=== PATIENT | female | born 1980 | race Two or more races ===

== ENCOUNTER 2016-08-28 16:22 | Emergency (ER) | payer OTHER ==
[2016-08-28] MEDS ORDERED: SODIUM CHLORIDE 0.9% 1,000 ML IV ONE (18:01)
[2016-08-28] MEDS ORDERED: KETOROLAC 60 MG/2 ML VIAL IVP STA (18:01)
[2016-08-28] MEDS ORDERED: KETOROLAC 30 MG/ML VIAL ONE (18:23)
[2016-08-28] MEDS ORDERED: diphenhydrAMINE INJ 50 MG/ML VIAL IVP STA (18:53)
[2016-08-28] MEDS ORDERED: diphenhydrAMINE INJ 50 MG/ML VIAL ONE (18:54)
[2016-08-28] MEDS ORDERED: PROMETHAZINE INJ 25 MG in SODIUM CHLORIDE 0.9% 50 ML IV STA (19:02)
[2016-08-28] MEDS ORDERED: PROMETHAZINE 25 MG/1 ML VIAL ONE (19:07)
== END 2016-08-28 20:45 | disposition home or self-care (01) ==
DX: R51 Headache (principal); E11.9 Type 2 diabetes mellitus without complications; Z79.84 Long term (current) use of oral hypoglycemic drugs; R03.0 Elevated blood-pressure reading, without diagnosis of hypertension

== ENCOUNTER 2016-09-12 09:13 | Outpatient (CLI) | payer OTHER | END 2016-09-12 09:14 | disposition home or self-care (01) | DX: I10 Essential (primary) hypertension (principal) ==

== ENCOUNTER 2017-05-16 01:59 | Emergency (ER) | payer OTHER ==
--- NOTE | 2017-05-16 02:17 | ED Physician Documentation ---
PD HPI CHEST PAIN - Stated complaint Stated Complaint: CHEST PX - Chief complaint Chief Complaint: Cardiac - History obtained from History obtained from: Patient - History of Present Illness Timing - onset: How many hours ago (2) Timing - onset during: Rest Timing - details: Gradual onset Quality: Aching, Sharp Location: Left chest Radiation: Neck Worsened by: Palpation, Position Associated symptoms: No: Shortness of air, Diaphoresis, Nausea, Vomiting Similar symptoms before: No diagnosis Recently seen: Not recently seen - Additional information Additional information: Patient is a 36 year old female with a history of diabetes who is presenting to the emergency department for chest pain. patient states that she was diagnosed with pneumonia ealier in the week and is just finishing her antibiotics. patient states that she has some left sided neck pain, with radiation iinto her neck. patient states that it hurts to push on it and when she moves her arm. Review of Systems Constitutional: denies: Fever, Chills Eyes: denies: Loss of vision, Decreased vision Ears: denies: Ear pain, Drainage/discharge Nose: reports: Rhinorrhea / runny nose, Congestion Throat: denies: Dental pain / toothache, Oral lesions / sores, Sore throat Cardiac: reports: Chest pain / pressure. denies: Pedal edema, Calf pain Respiratory: reports: Cough. 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 : None HEENT: None Psych: Anxiety Musculoskeletal: Fatigue Derm: None - Past Surgical History /CASINO ACCOUNTANT: section, Dilation and currettage HEENT: Tonsil/Adenoidectomy - Present Medications Home Medications: Ambulatory Orders Medication Instructions Recorded Confirmed Ibuprofen 800 mg PO DAILY 08/28/16 03/20/17 metFORMIN [Glucophage] 500 mg PO QID 08/28/16 03/20/17 Lidocaine Patch 5% [Lidoderm Patch] 1 each TOP DAILY #10 patch 05/16/17 Pantoprazole [Protonix] 1 tab PO DAILY 05/16/17 05/16/17 diazePAM [Valium] 5 - 10 mg PO TID PRN #15 tablet 05/16/17 - Allergies Allergies/Adverse Reactions: Allergies Allergy/AdvReac Type Severity Reaction Status Date / Time iodine Allergy Rash Verified 05/16/17 02:10 Sulfa (Sulfonamide Allergy Rash Verified 05/16/17 02:10 Antibiotics) - Social History Does the pt smoke?: No Smoking Status: Never smoker Does the pt drink ETOH?: No Does the pt have substance abuse?: No PD ED PE NORMAL - Vitals Vital signs reviewed: Yes - General General: Alert and oriented X 3, No acute distress, Well developed/nourished - HEENT HEENT: Atraumatic, PERRL, Pharynx benign - Neck Neck: Supple, no meningeal sign, No JVD - Cardiac Cardiac: RRR, No murmur - Respiratory Respiratory: No respiratory distress, Clear bilaterally - Abdomen Abdomen: Soft, Non tender, Non distended - Derm Derm: Normal color, Warm and dry, No rash - Extremities Extremities: No deformity, No edema - Neuro Neuro: Alert and oriented X 3, No motor deficit, No sensory deficit - Psych Psych: Normal mood, Normal affect PD ED PE EXPANDED - Cardiac Cardiac: Regular Rate, Chest wall TTP (tenderness to palpation of left chest and axillary region but no on the right). No: S3, S4 Results - Vitals Vitals: Vital Signs - 24 hr 05/16/17 02:08 Temperature 36.5 C Heart Rate 73 Respiratory 18 Rate Blood Pressure 170/97 H O2 Saturation 99 Oxygen O2 Source Room air - EKG (time done) 0212 Rate: Rate (enter#) (72) Rhythm: NSR [place]: Normal Intervals: Normal [place] QRS: Normal Ischemia: Normal ST segments Compare to prior EKG: Unchanged from prior EKG - Labs Labs: Laboratory Tests 05/16/17 05/16/17 05/16/17 02:15 02:15 02:15 WBC 8.8 RBC 5.19 Hgb 11.9 L Hct 36.9 L MCV 71.0 L MCH 22.9 L MCHC 32.3 RDW 23.1 H Plt Count 341 MPV 7.8 L Neut # 3.3 Lymph # 4.7 H [place] # 0.5 Eos # 0.3 Baso # 0.1 Absolute Nucleated RBC 0.01 Nucleated RBC % 0.1 Manual Slide Review Indicated Platelet Estimate NORMAL (130-450,000) RBC Morph Micro Appear 1+ OVALOCYTES Sodium 135 Potassium 3.6 Chloride 100 L Carbon Dioxide 25 Anion Gap 10.0 BUN 10 Creatinine 0.5 Estimated GFR (MDRD) 140 Glucose 232 H Calcium 9.4 Total Bilirubin 0.7 AST 14 ALT 20 Alkaline Phosphatase 95 Troponin I < 0.04 Total Protein 7.6 Albumin 4.1 Globulin 3.5 Albumin/Globulin Ratio 1.2 Lipase 48 - Rads (name of study) chest x-ray Radiology: Final report received (normal) PD MEDICAL DECISION MAKING - ED course Complexity details: reviewed old records, reviewed results, re-evaluated patient , considered differential, d/w patient ED course: Patient was seen and examined at bedside. ekg was performed and was unchanged from previous. Patient's labs and chest x-ray were within normal limits. patient had a PERC score of zero and a HEART score of 1. Patient was treated with topical lidoderm. Patient was given ample time to ask questions. Patient required no further work up and was stable for discharge with outpatient follow up. Departure - Departure Disposition: 01 Home, Self Care Clinical Impression: Atypical chest pain Condition: Good Instructions: ED Chest Pain Atypical Unkn Cause Follow-Up: MAYA HENAO [Primary Care Provider] - Prescriptions: diazePAM [Valium] 5 - 10 mg PO TID PRN #15 tablet PRN Reason: Spasms Lidocaine Patch 5% [Lidoderm Patch] 1 each TOP DAILY #10 patch Comments: Your diagnostics today were within normal limits. there is no sign of any cardiac disease and the likelyhood that it is your heart or lungs is less than 2 percent. It is likely musculoskeletal in nature. You should still follow up with your pmd for re-evaluation early next week and you can schedule an echocardiogram and a stress test. You may return to the emergency department at any time for new, worsening or uncontrollable symptoms.
[2017-05-16 02:26] LABS: BASOPHILS # (AUTO) 0.1 10^3/uL (0.0-0.1); EOSINOPHILS # (AUTO) 0.3 10^3/uL (0.0-0.7); EOSINOPHILS % (AUTO) 3.1 %; HCT - HEMATOCRIT 36.9 % (37.0-47.0); HGB - HEMOGLOBIN 11.9 g/dL (12.0-16.0); LYMPHOCYTES # (AUTO) 4.7 10^3/uL (1.5-3.5); LYMPHOCYTES % (AUTO) 53.2 %; MEAN CORPUSCULAR HEMOGLOBIN 22.9 pg (27.0-31.0); MEAN CORPUSCULAR HGB CONC 32.3 g/dL (32.0-36.0); MEAN PLATELET VOLUME 7.8 fL (7.9-10.8); MONOCYTES # (AUTO) 0.5 10^3/uL (0.0-1.0); MONOCYTES % (AUTO) 5.7 %; NEUTROPHILS # (AUTO) 3.3 10^3/uL (1.5-6.6); NUCLEATED RED BLOOD CELLS AUTO 0.1 /100WBC; RED BLOOD COUNT 5.19 10^6/uL (4.20-5.40); RED CELL DISTRIBUTION WIDTH 23.1 % (12.0-15.0); UNCORRECTED WHITE BLOOD COUNT 8.8 x10^3/uL; WHITE BLOOD COUNT 8.8 x10^3/uL (4.8-10.8)
[2017-05-16 02:33] LABS: ALBUMIN/GLOBULIN RATIO 1.2 (1.0-2.2); BILIRUBIN,TOTAL 0.7 mg/dL (0.2-1.0); CALCIUM 9.4 mg/dL (8.5-10.3); CREATININE 0.5 mg/dL (0.4-1.0); POTASSIUM 3.6 mmol/L (3.5-5.0); TOTAL PROTEIN 7.6 g/dL (6.7-8.2)
--- NOTE | 2017-05-16 02:41 | XRAY Preliminary Report ---
Exam: XR Chest 2 View PA/LAT IMPRESSION: Normal 2-view chest radiography. [facility] SITE ID: [id number]
--- NOTE | 2017-05-16 02:43 | XRAY Report ---
EXAM: CHEST RADIOGRAPHY EXAM DATE: 05/16/2017 02:34 AM. CLINICAL HISTORY: Chest pain hx of pneumonia. COMPARISON: None. TECHNIQUE: 2 views. FINDINGS: Lungs/Pleura: No focal opacities evident. No pleural effusion. No pneumothorax. Normal volumes. Mediastinum: Heart and mediastinal contours are unremarkable. Other: None. IMPRESSION: Normal 2-view chest radiography. [facility] Referring Provider Line: [phone] SITE ID: [id number]
[2017-05-16 02:48] LABS: PLATELET ESTIMATE, MANUAL NORMAL (130-450,000) (NORMAL)
[2017-05-16] MEDS ORDERED: LIDOCAINE PATCH 5% TOP STA (03:17)
[2017-05-16] MEDS ORDERED: LIDOCAINE PATCH 5% TOP ONE (03:30)
[2017-05-16 03:33] VITALS: BP 163/89
== END 2017-05-16 03:34 | disposition home or self-care (01) ==
LOC: ED 01:59
DX: R07.89 Other chest pain (principal); E11.9 Type 2 diabetes mellitus without complications; Z79.84 Long term (current) use of oral hypoglycemic drugs; I10 Essential (primary) hypertension; E78.00 Pure hypercholesterolemia, unspecified; K21.9 Gastro-esophageal reflux disease without esophagitis
CPT/HCPCS: 36415; 71020; 80053; 83690; 84484; 85025; 93005; 99283; 99284; A9270

== ENCOUNTER 2017-08-22 09:53 | Outpatient (CLI) | payer OTHER ==
--- NOTE | 2017-08-22 13:19 | MRI Report ---
EXAM: MRI LUMBAR SPINE WITHOUT CONTRAST EXAM DATE: 08/22/2017 11:41 AM. CLINICAL HISTORY: 36-year-old woman with right-sided buttock, lower leg, and calf pain. COMPARISON: None. TECHNIQUE: Multiplanar, multisequence T1-weighted and fluid-sensitive sequences of the lumbar spine f rom T12 to S1 without contrast. Other: None. FINDINGS: Spinal Cord: The conus terminates at L1. Cauda equinus nerve roots are normal in appearance. Alignment: There is trace retrolisthesis of L4 on L5. There is mild convex left scoliosis centered at L4-L5. Bone Marrow: Five [id number] lumbar vertebral bodies are present. No gross fractures or bone les ions. No bone marrow edema. Disk Levels/Facets: T12-L1: Unremarkable. L1-L2: Unremarkable. L2-L3: Unremarkable. L3-L4: Unremarkable. L4-L5: There is distal desiccation without significant height loss. Small broad-based disk bulge is p resent without significant narrowing of the central canal. There is mild facet hypertrophy without si gnificant narrowing of the neural foramina bilaterally. L5-S1: There is disk desiccation and moderate height loss. Right paracentral disk protrusion effaces the right lateral recess and appears to compress the passing right S1 nerve roots. No significant gurinder rowing of the central canal overall. Disk in the sub-radicular space results in mild to moderate narr owing of the left neural foramen without significant narrowing on the right. Musculature: Normal. No edema or fatty atrophy. Other: The partially visualized retroperitoneum is unremarkable. IMPRESSION: 1. L5-S1: Right paracentral disk protrusion effaces the right lateral recess and appears to compress the passing right S1 nerve roots. Mild to moderate narrowing of the left neural foramen. 2. L4-L5: Degenerative disk changes without significant narrowing of the central canal or neural fora bryan. Comment: The following findings are so common in adults without low back pain that while we report th eir presence, they must be interpreted with caution and in the context of the clinical situation. (Re chris Pelletier et al, Spine 2001) Prevalence of findings in patients without low back pain: Disk degeneration (any evidence): 92% Disk desiccation/T2 signal loss: 83% Disk height loss: 56% Disk bulge: 64% Disk protrusion: 32% Annular tear/high intensity zone: 38% [facility] Referring Provider Line: [phone] SITE ID: [id number]
== END 2017-08-22 09:54 | disposition home or self-care (01) ==
LOC: DI 09:53
PROVIDERS: ATTEND Family Medicine
DX: M51.27 Other intervertebral disc displacement, lumbosacral region (principal); M51.36 Other intervertebral disc degeneration, lumbar region; M47.896 Other spondylosis, lumbar region
CPT/HCPCS: 72148

== ENCOUNTER 2018-03-24 14:39 | Outpatient (CLI) | payer OTHER ==
--- NOTE | 2018-03-24 16:59 | Ultrasound Report ---
Procedure Date: 03/24/2018 Accession Number: [id number] / [id number] Procedure: US - Pelvic w/Transvaginal CPT Code: FULL RESULT: EXAM: PELVIC ULTRASOUND. EXAM DATE: 03/24/2018 04:09 PM. CLINICAL HISTORY: Pelvic perineal PX, irregular menstruation. COMPARISON: None. TECHNIQUE: Realtime transabdominal pelvic scan performed to identify the uterus and adnexa and as an overview of other pelvic structures, followed by transvaginal scan to provide greater detail of the uterus and adnexa, with static image documentation. FINDINGS: Uterus: 10.9 x 4.8 x 6.0 cm, volume 164 cc. Anteverted position. Echotexture is heterogeneous which is nonspecific but can be seen with adenomyosis. Masses: None. Endometrium: 8 mm. Normal. Cervix: 1.2 x 1.5 x 1.6 cm cyst is identified, likely nabothian. Right Ovary: 4.6 x 2.4 x 2.5 cm, volume 14.4 cc. Normal echotexture and blood flow. Left Ovary: 3.6 x 1.9 x 2.4 cm, volume 8.5 cc. Normal echotexture and blood flow. Free Fluid: A small amount of free fluid is felt to be within physiologic limits. Other: None. IMPRESSION: Heterogeneous echotexture of the uterus is nonspecific but can be seen with adenomyosis. [facility]
== END 2018-03-24 14:40 | disposition home or self-care (01) ==
LOC: DI 14:39
PROVIDERS: ATTEND Family Medicine
DX: N92.5 Other specified irregular menstruation (principal); R10.2 Pelvic and perineal pain
CPT/HCPCS: 76830; 76856

== ENCOUNTER 2018-04-30 22:28 | Emergency (ER) | payer OTHER ==
[2018-04-30 22:49] LABS: BASOPHILS # (AUTO) 0.1 10^3/uL (0.0-0.1); BASOPHILS % (AUTO) 1.1 %; EOSINOPHILS # (AUTO) 0.4 10^3/uL (0.0-0.7); HGB - HEMOGLOBIN 13.3 g/dL (12.0-16.0); LYMPHOCYTES # (AUTO) 4.6 10^3/uL (1.5-3.5); LYMPHOCYTES % (AUTO) 42.9 %; MEAN CORPUSCULAR HEMOGLOBIN 26.1 pg (27.0-31.0); MEAN CORPUSCULAR HGB CONC 32.9 g/dL (32.0-36.0); MEAN CORPUSCULAR VOLUME 79.3 fL (81.0-99.0); MEAN PLATELET VOLUME 8.1 fL (7.9-10.8); MONOCYTES # (AUTO) 0.7 10^3/uL (0.0-1.0); MONOCYTES % (AUTO) 6.6 %; NEUTROPHILS # (AUTO) 4.8 10^3/uL (1.5-6.6); NEUTROPHILS % (AUTO) 45.4 %; PLT - PLATELET COUNT 307 10^3/uL (130-450); RED CELL DISTRIBUTION WIDTH 13.8 % (12.0-15.0); WHITE BLOOD COUNT 10.6 x10^3/uL (4.8-10.8)
[2018-04-30 23:02] LABS: ALBUMIN 4.1 g/dL (3.2-5.5); ALBUMIN/GLOBULIN RATIO 1.2 (1.0-2.2); BILIRUBIN,TOTAL 0.5 mg/dL (0.2-1.0); CREATININE 0.5 mg/dL (0.4-1.0); TOTAL PROTEIN 7.4 g/dL (6.7-8.2)
[2018-04-30 23:18] LABS: BILIRUBIN,URINE NEGATIVE (NEGATIVE); GLUCOSE, URINE (UA) >=1000 mg/dL (NEGATIVE); KETONES,URINE (UA) NEGATIVE (NEGATIVE); LEUKOCYTE ESTERASE, URINE NEGATIVE (NEGATIVE); NITRITE,URINE NEGATIVE (NEGATIVE); OCCULT BLOOD,URINE NEGATIVE (NEGATIVE); PH,URINE 7.5 PH (5.0-7.5); PROTEIN,URINE NEGATIVE (NEGATIVE); UROBILINOGEN,URINE 0.2 (NORMAL) E.U./dL (NORMAL)
[2018-04-30 23:20] LABS: CLARITY,URINE CLEAR (CLEAR); HCG UR QUAL NEGATIVE
--- NOTE | 2018-05-01 00:27 | ED Physician Documentation ---
PD HPI CHEST PAIN - Stated complaint Stated Complaint: CP - Chief complaint Chief Complaint: Cardiac - History obtained from History obtained from: Patient - History of Present Illness Timing - onset: Enter time (17:00), Today Timing - details: Abrupt onset Pain level now: 0 Quality: Pressure, Sharp, Pain Location: Substernal Radiation: Other (right>left) Improved by: Nothing Worsened by: Other (no exacerbating factors) Recently seen: Not recently seen - Additional information Additional information: c/o chest pain sudden onset 5 PM, right anterior chest to left, onset while leaning over table at home. initially sharp, but after one hour, became dull pressure. Review of Systems Constitutional: reports: Reviewed and negative Cardiac: reports: Chest pain / pressure. denies: Palpitations, Pedal edema, Calf pain Respiratory: reports: Reviewed and negative GI: reports: Nausea. 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 : None HEENT: None Psych: Anxiety Musculoskeletal: Fatigue Derm: None - Past Surgical History /TRACK GRINDER: section, Dilation and currettage HEENT: Tonsil/Adenoidectomy - Present Medications Home Medications: Ambulatory Orders Medication Instructions Recorded Confirmed Ibuprofen 800 mg PO DAILY 08/28/16 03/20/17 metFORMIN [Glucophage] 500 mg PO QID 08/28/16 03/20/17 Lidocaine Patch 5% [Lidoderm Patch] 1 each TOP DAILY #10 patch 05/16/17 Pantoprazole [Protonix] 1 tab PO DAILY 05/16/17 05/16/17 diazePAM [Valium] 5 - 10 mg PO TID PRN #15 tablet 05/16/17 - Allergies Allergies/Adverse Reactions: Allergies Allergy/AdvReac Type Severity Reaction Status Date / Time iodine Allergy Rash Verified 05/16/17 02:10 Sulfa (Sulfonamide Allergy Rash Verified 05/16/17 02:10 Antibiotics) - Social History Does the pt smoke?: No Smoking Status: Never smoker Does the pt drink ETOH?: Yes ETOH Use: Wine Does the pt have substance abuse?: No - Immunizations Immunizations are current?: Yes PD ED PE NORMAL - Vitals Vital signs reviewed: Yes - General General: Alert and oriented X 3, No acute distress, Well developed/nourished - Neck Neck: Supple, no meningeal sign - Cardiac Cardiac: RRR, No murmur, No gallop, No rub - Respiratory Respiratory: No respiratory distress, Clear bilaterally - Abdomen Abdomen: Normal bowel sounds, Soft, Non tender, Non distended - Extremities Extremities: No edema Results - Vitals Vitals: Oxygen O2 Source Room air - EKG (time done) No standard instances Rate: Rate (enter#) (76) Rhythm: NSR [place]: Normal Intervals: Normal [place] QRS: Normal Ischemia: Normal ST segments - Labs Labs: Laboratory Tests 04/30/18 04/30/18 04/30/18 22:40 22:40 22:40 WBC 10.6 RBC 5.10 Hgb 13.3 Hct 40.5 MCV 79.3 L MCH 26.1 L MCHC 32.9 RDW 13.8 Plt Count 307 MPV 8.1 Neut # (Auto) 4.8 Lymph # (Auto) 4.6 H [place] # (Auto) 0.7 Eos # (Auto) 0.4 Baso # (Auto) 0.1 Absolute Nucleated RBC 0.00 Nucleated RBC % 0.0 Sodium 134 L Potassium 3.8 Chloride 101 Carbon Dioxide 25 Anion Gap 8.0 BUN 11 Creatinine 0.5 Estimated GFR (MDRD) 139 Glucose 219 H Calcium 9.0 Total Bilirubin 0.5 AST 16 ALT 16 Alkaline Phosphatase 87 Troponin I < 0.04 Total Protein 7.4 Albumin 4.1 Globulin 3.3 Albumin/Globulin Ratio 1.2 Lipase 51 Urine Color Urine Clarity Urine pH Ur Specific [place] Urine Protein Urine Glucose (UA) Urine Ketones Urine Occult Blood Urine Nitrite Urine Bilirubin Urine Urobilinogen Ur Leukocyte Esterase Ur Microscopic Review Urine Culture Comments Urine HCG, Qual 04/30/18 22:40 WBC RBC Hgb Hct MCV MCH MCHC RDW Plt Count MPV Neut # (Auto) Lymph # (Auto) [place] # (Auto) Eos # (Auto) Baso # (Auto) Absolute Nucleated RBC Nucleated RBC % Sodium Potassium Chloride Carbon Dioxide Anion Gap BUN Creatinine Estimated GFR (MDRD) Glucose Calcium Total Bilirubin AST ALT Alkaline Phosphatase Troponin I Total Protein Albumin Globulin Albumin/Globulin Ratio Lipase Urine Color YELLOW Urine Clarity CLEAR Urine pH 7.5 Ur Specific [place] 1.015 Urine Protein NEGATIVE Urine Glucose (UA) >=1000 H Urine Ketones NEGATIVE Urine Occult Blood NEGATIVE Urine Nitrite NEGATIVE Urine Bilirubin NEGATIVE Urine Urobilinogen 0.2 (NORMAL) Ur Leukocyte Esterase NEGATIVE Ur Microscopic Review NOT INDICATED Urine Culture Comments NOT INDICATED Urine HCG, Qual NEGATIVE - Rads (name of study) chest xray Radiology: Prelim report reviewed, See rad report PD MEDICAL DECISION MAKING - ED course Complexity details: reviewed results, re-evaluated patient, considered differential, d/w patient - Sepsis Event Vital Signs: Oxygen O2 Source Room air Departure - Departure Disposition: 01 Home, Self Care Clinical Impression: Chest pain Condition: Good Instructions: ED Chest Pain Atypical Unkn Cause Follow-Up: SIMBA SWANSON DO [Primary Care Provider] - Comments: Follow up with your primary care provider; they might order other tests such as an ultrasound of your gallbladder. Discharge Date/Time: 05/01/18 02:32
[2018-05-01 01:10] VITALS: BP 144/106
--- NOTE | 2018-05-01 01:26 | XRAY Report ---
Reason: chest pain Procedure Date: 05/01/2018 Accession Number: [id number] / [id number] Procedure: XR - Chest 2 View X-Ray CPT Code: 55191 FULL RESULT: EXAM: CHEST RADIOGRAPHY EXAM DATE: 05/01/2018 01:00 AM. CLINICAL HISTORY: Sharp mid chest pain across the chest, chest pressure. Symptoms since 5 PM. COMPARISON: CHEST 2 VIEW PA/LAT 05/16/2017 2:16 AM. TECHNIQUE: 2 views. FINDINGS: Lungs/Pleura: No focal opacities evident. No pleural effusion. No pneumothorax. Normal volumes. Mediastinum: Heart and mediastinal contours are unremarkable. Other: None. IMPRESSION: Stable normal appearance of the chest. [facility]
== END 2018-05-01 02:32 | disposition home or self-care (01) ==
LOC: ED 22:28
DX: R07.9 Chest pain, unspecified (principal); I10 Essential (primary) hypertension; E11.9 Type 2 diabetes mellitus without complications; Z79.84 Long term (current) use of oral hypoglycemic drugs
CPT/HCPCS: 36415; 71046; 80053; 81001; 81003; 81025; 83690; 84484; 85025; 87086; 93005; 93010; 99282; 99283

== ENCOUNTER 2018-05-05 14:23 | Outpatient (CLI) | payer OTHER | END 2018-05-05 14:24 | disposition home or self-care (01) | LOC: SC 14:23 | PROVIDERS: ATTEND Internal Medicine Pulmonary Disease | DX: G47.10 Hypersomnia, unspecified (principal); R06.83 Snoring; G47.8 Other sleep disorders; E66.9 Obesity, unspecified; Z68.33 Body mass index [BMI] 33.0-33.9, adult; G47.21 Circadian rhythm sleep disorder, delayed sleep phase type; G47.00 Insomnia, unspecified | CPT/HCPCS: 99203; 99212 ==

== ENCOUNTER 2018-06-12 10:54 | Emergency (ER) | payer OTHER ==
--- NOTE | 2018-06-12 12:16 | ED Physician Documentation ---
PD HPI SKIN - Stated complaint Stated Complaint: RT EYE SWELLING/FOAM AT MOUTH/HEAD PX - Chief complaint Chief Complaint: Heent - History obtained from History obtained from: Patient - History of Present Illness Timing - onset: How many days ago (few days of pain right forehead/face with some rash, Dx as shingles and PMD Rx valacyclovir and Elavil. She is having pain extend to around the eyelids and cheek today, and called PMD office and told to come to ER. Denies pain in eye itself, nor "lindsey" feeling nor blurred vision.) Timing - duration: Days Timing - details: Gradual onset Location: Face (right forehead and cheek, now pain to eyelid area) Quality / character: Painful, Burning Associated symptoms: Other. 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 : None HEENT: None Psych: Anxiety Musculoskeletal: Fatigue Derm: None - Past Surgical History /HEAD TENNIS PROFESSIONAL: section, Dilation and currettage HEENT: Tonsil/Adenoidectomy - Present Medications Home Medications: Ambulatory Orders Medication Instructions Recorded Confirmed Ibuprofen 800 mg PO DAILY 08/28/16 03/20/17 metFORMIN [Glucophage] 1,000 mg PO QID 08/28/16 03/20/17 Amitriptyline [Elavil] 06/12/18 Aspirin 06/12/18 Cyclobenzaprine [Flexeril] 06/12/18 Docusate Calcium 06/12/18 Insulin Aspart [Novolog Flexpen] 06/12/18 Loratadine 06/12/18 Losartan [Cozaar] 06/12/18 Naproxen [Naprosyn] 500 mg PO BID #20 tablet 06/12/18 Omeprazole 06/12/18 Oxycodone HCl/Acetaminophen 06/12/18 [Oxycodone-Acetaminophen 10-325] Simvastatin 06/12/18 Valacyclovir HCl [Valacyclovir] 06/12/18 - Allergies Allergies/Adverse Reactions: Allergies Allergy/AdvReac Type Severity Reaction Status Date / Time iodine Allergy Rash Verified 06/12/18 11:01 Sulfa (Sulfonamide Allergy Rash Verified 06/12/18 11:01 Antibiotics) - Social History Does the pt smoke?: No Smoking Status: Never smoker Does the pt drink ETOH?: Yes Does the pt have substance abuse?: No - Immunizations Immunizations are current?: Yes PD ED PE NORMAL - Vitals Vital signs reviewed: Yes - General General: Alert and oriented X 3, No acute distress, Well developed/nourished - HEENT HEENT: PERRL, EOMI, Pharynx benign, Other (flourescein dye without uptake. Anterior chamber appears normal. ) - Neck Neck: Supple, no meningeal sign, No adenopathy - Cardiac Cardiac: RRR, No murmur - Respiratory Respiratory: Clear bilaterally - Derm Derm: Normal color, Warm and dry, Other (right lateral forehead and restorationist area blistered red patch of rash c/w shingles. No rash as yet on cheek nor eyelid but skin sensitive. No sensitivity at tip of nose. ) - Neuro Neuro: Alert and oriented X 3, No motor deficit, Normal speech Results - Vitals Vitals: Oxygen O2 Source Room air PD MEDICAL DECISION MAKING - ED course Complexity details: considered differential (some skin pain and sensitive in facial skin. No symptoms of the orbit/eye itself. ), d/w patient Departure - Departure Disposition: 01 Home, Self Care Clinical Impression: Shingles outbreak Qualifiers: Herpes zoster complications: without complications Qualified Code(s): B02.9 - Zoster without complications Condition: Stable Record reviewed to determine appropriate education?: Yes Instructions: ED Shingles Follow-Up: SIMBA SWANSON DO [Primary Care Provider] - Prescriptions: Naproxen [Naprosyn] 500 mg PO BID #20 tablet Comments: It does not sound to look like the shingles is involving the eye itself. The eyelids are worse the skin around and would fit with the expected distribution of your shingles rash. One will get some abnormal sensation and swelling from the shingles even if there is not a rash in that area at the time. I would continue current medications and add some anti-inflammatories such as naproxen twice daily. Discharge Date/Time: 06/12/18 12:50
[2018-06-12] MEDS ORDERED: NAPROXEN 250 MG TABLET PO STA (12:40)
[2018-06-12 12:50] VITALS: BP 130/92
== END 2018-06-12 12:50 | disposition home or self-care (01) ==
LOC: ED 10:54
DX: B02.9 Zoster without complications (principal); I10 Essential (primary) hypertension; E11.9 Type 2 diabetes mellitus without complications; Z79.84 Long term (current) use of oral hypoglycemic drugs
CPT/HCPCS: 99283; A9270

== ENCOUNTER 2018-09-01 16:55 | Emergency (ER) | payer OTHER ==
[2018-09-01] MEDS ORDERED: SODIUM CHLORIDE 0.9% 1,000 ML IV ONE (18:35)
--- NOTE | 2018-09-01 18:37 | ED Physician Documentation ---
History of Present Illness - Stated complaint Stated Complaint: VOMITING - Chief complaint Chief Complaint: General - History obtained from History obtained from: Patient - History of Present Illness Timing: Yesterday (This is a 37-year-old type II diabetic on insulin with the possibility of became sick yesterday with postnasal drip and increase in her reflux systems as well as a productive cough and one episode of vomiting although she is not nauseous now. She has had chills and myalgias but no measured fevers. 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 She has not had an abnormal chest x-ray but has had pneumonia in the past. Her blood sugars went up in the 400s today which was unexpected.) Review of Systems Constitutional: reports: Chills, Fatigue. denies: Fever Nose: reports: Rhinorrhea / runny nose Throat: reports: Sore throat Respiratory: reports: Dyspnea, Cough GI: reports: Nausea, Vomiting. denies: Abdominal Pain PD PAST MEDICAL HISTORY - Past Medical History Cardiovascular: Hypertension, High cholesterol Respiratory: None Endocrine/Autoimmune: Type 2 diabetes GI: GERD, Chronic constipation DATA COLLECTION INTERVIEWER: Ovarian cysts : None HEENT: None Psych: Anxiety Musculoskeletal: Fatigue Derm: None - Past Surgical History /DATA COLLECTION INTERVIEWER: section, Dilation and currettage HEENT: Tonsil/Adenoidectomy - Present Medications Home Medications: Ambulatory Orders Medication Instructions Recorded Confirmed Ibuprofen 800 mg PO DAILY 08/28/16 03/20/17 metFORMIN [Glucophage] 1,000 mg PO BID 08/28/16 03/20/17 Amitriptyline [Elavil] 06/12/18 Aspirin 06/12/18 Docusate Calcium 06/12/18 Insulin Aspart [Novolog Flexpen] 06/12/18 Losartan [Cozaar] 06/12/18 Omeprazole 06/12/18 Simvastatin 06/12/18 Benzonatate [Tessalon Perle] 100 - 200 mg PO TID PRN #30 capsule 09/01/18 - Allergies Allergies/Adverse Reactions: Allergies Allergy/AdvReac Type Severity Reaction Status Date / Time iodine Allergy Rash Verified 09/01/18 17:07 Sulfa (Sulfonamide Allergy Rash Verified 09/01/18 17:07 Antibiotics) - Social History Does the pt smoke?: No Smoking Status: Never smoker Does the pt drink ETOH?: Yes Does the pt have substance abuse?: No - Immunizations Immunizations are current?: Yes PD ED PE NORMAL - Vitals Vital signs reviewed: Yes - General General: Alert and oriented X 3, No acute distress - HEENT HEENT: PERRL, EOMI, Ears normal, Moist mucous membranes, Pharynx benign - Neck Neck: Supple, no meningeal sign, No bony TTP - Cardiac Cardiac: RRR, No murmur - Respiratory Respiratory: No respiratory distress, Clear bilaterally - Abdomen Abdomen: Normal bowel sounds, Soft, Non tender - Back Back: No CVA TTP, No spinal TTP - Derm Derm: No rash - Neuro Neuro: Alert and oriented X 3, Normal speech Results - Vitals Vitals: Vital Signs - 24 hr 09/01/18 09/01/18 09/01/18 17:02 17:07 18:34 Temperature 36.3 C L 36.7 C Heart Rate 118 H 111 H Respiratory 20 15 Rate Blood Pressure 141/98 H 139/94 H O2 Saturation 97 97 Oxygen O2 Source Room air - Labs Labs: Laboratory Tests 09/01/18 09/01/18 09/01/18 17:09 17:09 18:25 WBC RBC Hgb Hct MCV MCH MCHC RDW Plt Count MPV Neut # (Auto) Lymph # (Auto) [place] # (Auto) Eos # (Auto) Baso # (Auto) Absolute Nucleated RBC Nucleated RBC % Sodium Potassium Chloride Carbon Dioxide Anion Gap BUN Creatinine Estimated GFR (MDRD) Glucose Calcium Total Bilirubin AST ALT Alkaline Phosphatase Total Protein Albumin Globulin Albumin/Globulin Ratio Lipase Urine Color YELLOW Urine Clarity CLEAR Urine pH 5.5 Ur Specific [place] 1.020 Urine Protein NEGATIVE Urine Glucose (UA) >=1000 H Urine Ketones 15 H Urine Occult Blood NEGATIVE Urine Nitrite NEGATIVE Urine Bilirubin NEGATIVE Urine Urobilinogen 0.2 (NORMAL) Ur Leukocyte Esterase NEGATIVE Ur Microscopic Review NOT INDICATED Urine Culture Comments NOT INDICATED Urine HCG, Qual Influenza A (Rapid) Negative Influenza B (Rapid) Negative Group A Strep Rapid Negative 09/01/18 09/01/18 09/01/18 18:25 18:45 18:45 WBC 9.1 RBC 5.27 Hgb 13.8 Hct 42.8 MCV 81.2 MCH 26.3 L MCHC 32.4 RDW 13.6 Plt Count 323 MPV 8.2 Neut # (Auto) 6.1 Lymph # (Auto) 2.1 [place] # (Auto) 0.7 Eos # (Auto) 0.1 Baso # (Auto) 0.1 Absolute Nucleated RBC 0.00 Nucleated RBC % 0.0 Sodium 134 L Potassium 3.8 Chloride 100 L Carbon Dioxide 25 Anion Gap 9.0 BUN 9 Creatinine 0.7 Estimated GFR (MDRD) 94 Glucose 313 H Calcium 9.7 Total Bilirubin 0.8 AST 13 ALT 17 Alkaline Phosphatase 116 Total Protein 8.1 Albumin 4.1 Globulin 4.0 Albumin/Globulin Ratio 1.0 Lipase 42 Urine Color Urine Clarity Urine pH Ur Specific [place] 1.020 Urine Protein Urine Glucose (UA) Urine Ketones Urine Occult Blood Urine Nitrite Urine Bilirubin Urine Urobilinogen Ur Leukocyte Esterase Ur Microscopic Review Urine Culture Comments Urine HCG, Qual NEGATIVE Influenza A (Rapid) Influenza B (Rapid) Group A Strep Rapid - Rads (name of study) 2v chest Radiology: EMP read contemporaneously (NAD) PD MEDICAL DECISION MAKING - ED course ED course: This is a 37-year-old woman with type 2 diabetes on insulin who presents with uncontrolled blood sugars in the setting of what sounds like a viral URI. Her workup was otherwise unremarkable including to clear chest x-ray no evidence of DKA on blood work. Departure - Departure Disposition: Home, Self Care Clinical Impression: Viral URI Uncontrolled type 2 diabetes mellitus Qualifiers: Glycemic state: with hyperglycemia Qualified Code(s): E11.65 - Type 2 diabetes mellitus with hyperglycemia Condition: Good Record reviewed to determine appropriate education?: Yes Instructions: ED Viral Syndrome Prescriptions: Benzonatate [Tessalon Perle] 100 - 200 mg PO TID PRN #30 capsule PRN Reason: Cough Comments: Call your doctor to arrange a follow-up appointment, make the next available appointment. In the interim, return anytime if worse or if new symptoms develop. Your blood pressure was elevated today on check into the emergency department. This does not mean that you have hypertension, it is a common phenomenon to come to the emergency department and have elevated blood pressure. I recommend that you see your primary care physician within the week to have it rechecked when you are feeling better.
[2018-09-01 18:45] LABS: BILIRUBIN,URINE NEGATIVE (NEGATIVE); GLUCOSE, URINE (UA) >=1000 mg/dL (NEGATIVE); KETONES,URINE (UA) 15 mg/dL (NEGATIVE); LEUKOCYTE ESTERASE, URINE NEGATIVE (NEGATIVE); NITRITE,URINE NEGATIVE (NEGATIVE); OCCULT BLOOD,URINE NEGATIVE (NEGATIVE); PH,URINE 5.5 PH (5.0-7.5); PROTEIN,URINE NEGATIVE (NEGATIVE); UROBILINOGEN,URINE 0.2 (NORMAL) E.U./dL (NORMAL)
[2018-09-01 18:48] LABS: CLARITY,URINE CLEAR (CLEAR)
[2018-09-01 18:49] LABS: BASOPHILS # (AUTO) 0.1 10^3/uL (0.0-0.1); BASOPHILS % (AUTO) 0.7 %; EOSINOPHILS # (AUTO) 0.1 10^3/uL (0.0-0.7); EOSINOPHILS % (AUTO) 1.3 %; HGB - HEMOGLOBIN 13.8 g/dL (12.0-16.0); LYMPHOCYTES # (AUTO) 2.1 10^3/uL (1.5-3.5); LYMPHOCYTES % (AUTO) 22.9 %; MEAN CORPUSCULAR HEMOGLOBIN 26.3 pg (27.0-31.0); MEAN CORPUSCULAR HGB CONC 32.4 g/dL (32.0-36.0); MEAN CORPUSCULAR VOLUME 81.2 fL (81.0-99.0); MEAN PLATELET VOLUME 8.2 fL (7.9-10.8); MONOCYTES # (AUTO) 0.7 10^3/uL (0.0-1.0); MONOCYTES % (AUTO) 7.6 %; NEUTROPHILS # (AUTO) 6.1 10^3/uL (1.5-6.6); NEUTROPHILS % (AUTO) 67.5 %; PLT - PLATELET COUNT 323 10^3/uL (130-450); RED BLOOD COUNT 5.27 10^6/uL (4.20-5.40); RED CELL DISTRIBUTION WIDTH 13.6 % (12.0-15.0); WHITE BLOOD COUNT 9.1 x10^3/uL (4.8-10.8)
[2018-09-01 19:02] LABS: ALBUMIN 4.1 g/dL (3.2-5.5); BILIRUBIN,TOTAL 0.8 mg/dL (0.2-1.0); CALCIUM 9.7 mg/dL (8.5-10.3); CREATININE 0.7 mg/dL (0.4-1.0); TOTAL PROTEIN 8.1 g/dL (6.7-8.2)
[2018-09-01 19:06] LABS: HCG UR QUAL NEGATIVE
--- NOTE | 2018-09-01 19:46 | XRAY Report ---
Reason: cough Procedure Date: 09/01/2018 Accession Number: [id number] / [id number] Procedure: XR - Chest 2 View X-Ray CPT Code: 93939 FULL RESULT: EXAM: CHEST RADIOGRAPHY EXAM DATE: 09/01/2018 07:28 PM. CLINICAL HISTORY: Cough. COMPARISON: Chest radiograph from 05/01/2018. TECHNIQUE: 2 views. FINDINGS: Lungs/Pleura: No focal opacities evident. No pleural effusion. No pneumothorax. Normal volumes. Mediastinum: Heart and mediastinal contours are unremarkable. Other: None. IMPRESSION: No acute cardiopulmonary abnormality. RADIA
[2018-09-01 20:15] VITALS: BP 136/82
== END 2018-09-01 20:16 | disposition home or self-care (01) ==
LOC: ED 16:55
DX: B97.89 Other viral agents as the cause of diseases classified elsewhere (principal); E11.65 Type 2 diabetes mellitus with hyperglycemia; Z79.4 Long term (current) use of insulin; I10 Essential (primary) hypertension; E78.00 Pure hypercholesterolemia, unspecified
CPT/HCPCS: 36415; 71046; 80053; 81001; 81003; 81025; 83690; 85025; 87070; 87086; 87275; 87276; 87430; 96360; 99283

== ENCOUNTER 2018-10-05 19:30 | Outpatient (CLI) | payer OTHER | END 2018-10-05 19:31 | disposition home or self-care (01) | LOC: SC 19:30 | PROVIDERS: ATTEND Internal Medicine Pulmonary Disease | DX: G47.61 Periodic limb movement disorder (principal) | CPT/HCPCS: 95810 ==

== ENCOUNTER 2018-10-21 13:17 | Outpatient (CLI) | payer OTHER | END 2018-10-21 13:18 | disposition home or self-care (01) | LOC: SC 13:17 | PROVIDERS: ATTEND Nurse Practitioner Family | DX: R06.83 Snoring (principal); G47.61 Periodic limb movement disorder; G47.00 Insomnia, unspecified | CPT/HCPCS: 99212; 99214 ==

== ENCOUNTER 2018-11-11 15:56 | Outpatient (CLI) | payer OTHER | END 2018-11-11 15:57 | disposition home or self-care (01) | LOC: SC 15:56 | PROVIDERS: ATTEND Nurse Practitioner Family | DX: G47.00 Insomnia, unspecified (principal) | CPT/HCPCS: 99212; 99214 ==

== ENCOUNTER 2019-03-04 14:17 | Outpatient (CLI) | payer OTHER | END 2019-03-04 14:18 | disposition home or self-care (01) | LOC: SC 14:17 | PROVIDERS: ATTEND Nurse Practitioner Family | DX: R06.83 Snoring (principal) | CPT/HCPCS: 99212; 99215 ==

== ENCOUNTER 2019-04-17 15:11 | Emergency (ER) | payer OTHER ==
[2019-04-17] MEDS ORDERED: BUTALB/ACETAM/CAFF 50/325/40MG TABLET PO STA (15:40)
--- NOTE | 2019-04-17 15:42 | ED Physician Documentation ---
History of Present Illness - Stated complaint Stated Complaint: HEADACHE/18 WKS PREG - Chief complaint Chief Complaint: Neuro - History obtained from History obtained from: Patient - History of Present Illness Timing: How many weeks ago (1) Pain level max: 9 Pain level now: 9 Improved by: nothing Worsened by: light and sound - Additonal information Additional information: 38-year-old female presents to the emergency department complaining of a left- sided headache for the past week. She has chronic migraines but has been taken off of her migraine medication secondary to . She is approximately 18 weeks along. Worse with light and sound, nothing makes it better. Has been taken Tylenol without relief. No vaginal bleeding. She is followed in [place] for her . Review of Systems Ten Systems: 10 systems reviewed and negative Constitutional: denies: Fever, Chills Nose: denies: Rhinorrhea / runny nose, Congestion Throat: denies: Sore throat Cardiac: denies: Chest pain / pressure Respiratory: denies: Cough GI: denies: Vomiting, Diarrhea Skin: denies: Rash Musculoskeletal: denies: Neck pain, Back pain Neurologic: denies: Focal weakness, Numbness, Syncope, Seizure, Confused, Altered mental status PD PAST MEDICAL HISTORY - Past Medical History Cardiovascular: Hypertension, High cholesterol Respiratory: None Endocrine/Autoimmune: Type 2 diabetes GI: GERD, Chronic constipation RN HOME CARE: Ovarian cysts : None HEENT: None Psych: Anxiety Musculoskeletal: Fatigue Derm: None - Past Surgical History /RN HOME CARE: section, Dilation and currettage HEENT: Tonsil/Adenoidectomy - Present Medications Home Medications: Ambulatory Orders Medication Instructions Recorded Confirmed Ibuprofen 800 mg PO DAILY 08/28/16 03/20/17 metFORMIN [Glucophage] 1,000 mg PO BID 08/28/16 03/20/17 Amitriptyline [Elavil] 06/12/18 Aspirin 06/12/18 Docusate Calcium 06/12/18 Insulin Aspart [Novolog Flexpen] 06/12/18 Losartan [Cozaar] 06/12/18 Omeprazole 06/12/18 Simvastatin 06/12/18 Benzonatate [Tessalon Perle] 100 - 200 mg PO TID PRN #30 capsule 09/01/18 Butalb/Acetaminophen/Caffeine 1 cap PO Q8H PRN #10 capsule 04/17/19 [Fioricet 50-300-40 mg Capsule] diphenhydrAMINE [Benadryl] 25 - 50 mg PO Q6H PRN #30 capsule 04/17/19 - Allergies Allergies/Adverse Reactions: Allergies Allergy/AdvReac Type Severity Reaction Status Date / Time iodine Allergy Rash Verified 09/01/18 17:07 Sulfa (Sulfonamide Allergy Rash Verified 09/01/18 17:07 Antibiotics) - Social History Does the pt smoke?: No Smoking Status: Never smoker Does the pt drink ETOH?: Yes Does the pt have substance abuse?: No - Immunizations Immunizations are current?: Yes PD ED PE NORMAL - Vitals Vital signs reviewed: Yes - General General: Alert and oriented X 3, No acute distress, Well developed/nourished - HEENT HEENT: Atraumatic, PERRL, Moist mucous membranes, Pharynx benign, Other (no papilledema) - Neck Neck: Supple, no meningeal sign - Cardiac Cardiac: RRR, Strong equal pulses - Respiratory Respiratory: No respiratory distress, Clear bilaterally - Abdomen Abdomen: Soft, Non tender, Non distended - Derm Derm: Warm and dry, No rash - Extremities Extremities: No edema - Neuro Neuro: Alert and oriented X 3, rolled seat trimmer 2-12 intact, No motor deficit, No sensory deficit, Normal speech Eye Opening: Spontaneous Motor: Obeys Commands Verbal: Oriented GCS Score: 15 - Psych Psych: Normal mood, Normal affect Results - Vitals Vitals: Vital Signs - 24 hr 04/17/19 04/17/19 04/17/19 15:26 15:53 16:03 Temperature 36.7 C Heart Rate 101 H 96 Respiratory 18 17 Rate Blood Pressure 135/83 H 119/79 O2 Saturation 98 97 04/17/19 17:34 Temperature Heart Rate 89 Respiratory Rate Blood Pressure 130/82 H O2 Saturation 98 Oxygen O2 Source Room air - Labs Labs: Laboratory Tests 04/17/19 16:00 Urine Color YELLOW Urine Clarity CLEAR Urine pH 7.0 Ur Specific [place] 1.015 Urine Protein NEGATIVE Urine Glucose (UA) 500 H Urine Ketones TRACE Urine Occult Blood NEGATIVE Urine Nitrite NEGATIVE Urine Bilirubin NEGATIVE Urine Urobilinogen 0.2 (NORMAL) Ur Leukocyte Esterase NEGATIVE Ur Microscopic Review NOT INDICATED Urine Culture Comments NOT INDICATED PD MEDICAL DECISION MAKING - ED course Complexity details: reviewed results, re-evaluated patient, considered differential, d/w patient ED course: 38-year-old female presents to the emergency department with an ongoing headache today. Mildly improved with Fioricet. She is 18 weeks . heart rate of 144 bpm on bedside ultrasound. No neurological deficits. No vision changes. No evidence of sinus venous thrombosis. She improved greatly with Toradol and Benadryl. She would like to try to go home at this time. She will return if she worsens. She has a follow-up with her OB on Friday. Patient counseled regarding signs and symptoms for which I believe and urgent re- evaluation would be necessary. Patient with good understanding of and agreement to plan and is comfortable going home at this time This document was made in part using voice recognition software. While efforts are made to proofread this document, sound alike and grammatical errors may occur. No evidence of subarachnoid hemorrhage, tumor. Departure - Departure Disposition: , Self Care Clinical Impression: Migraine Qualifiers: Migraine type: unspecified Status migrainosus presence: without status migrainosus Intractability: not intractable Qualified Code(s): G43.909 - Migraine, unspecified, not intractable, without status migrainosus Condition: Good Instructions: ED Headache Migraine Follow-Up: SIMBA SWANSON DO [Primary Care Provider] - Within 3 Days Prescriptions: Butalb/Acetaminophen/Caffeine [Fioricet 50-300-40 mg Capsule] 1 cap PO Q8H PRN #10 capsule PRN Reason: Headache diphenhydrAMINE [Benadryl] 25 - 50 mg PO Q6H PRN #30 capsule PRN Reason: Headache Comments: Use the medications as prescribed. Return if you worsen. Follow-up with your doctor for further evaluation and care. If your headache persists, they may want to pursue an MRI venogram of your brain. Do not drive today.
[2019-04-17 16:15] LABS: BILIRUBIN,URINE NEGATIVE (NEGATIVE); CLARITY,URINE CLEAR (CLEAR); GLUCOSE, URINE (UA) 500 mg/dL (NEGATIVE); KETONES,URINE (UA) TRACE mg/dL (NEGATIVE); LEUKOCYTE ESTERASE, URINE NEGATIVE (NEGATIVE); NITRITE,URINE NEGATIVE (NEGATIVE); OCCULT BLOOD,URINE NEGATIVE (NEGATIVE); PROTEIN,URINE NEGATIVE (NEGATIVE); UROBILINOGEN,URINE 0.2 (NORMAL) E.U./dL (NORMAL)
[2019-04-17] MEDS ORDERED: diphenhydrAMINE INJ 50 MG/ML VIAL IVP STA ×2 (16:34→17:39)
[2019-04-17] MEDS ORDERED: KETOROLAC 30 MG/ML VIAL IVP STA (16:34)
[2019-04-17 17:35] VITALS: BP 130/82
== END 2019-04-17 18:06 | disposition home or self-care (01) ==
LOC: ED 15:11
DX: O99.89 Other specified diseases and conditions complicating pregnancy, childbirth and the puerperium (principal); G43.909 Migraine, unspecified, not intractable, without status migrainosus; O16.2 Unspecified maternal hypertension, second trimester; O24.912 Unspecified diabetes mellitus in pregnancy, second trimester; Z79.4 Long term (current) use of insulin; Z3A.18 18 weeks gestation of pregnancy
CPT/HCPCS: 81003; 96374; 96375; 96376; 99283; A9270; J1200; 81001; 87086

== ENCOUNTER 2019-04-18 15:41 | Emergency (ER) | payer OTHER ==
--- NOTE | 2019-04-18 16:08 | ED Physician Documentation ---
History of Present Illness - Stated complaint Stated Complaint: HEADACHE/FEMALE PX/18 WKS PREG - Chief complaint Chief Complaint: Abd Pain - History obtained from History obtained from: Patient - History of Present Illness Timing: How many weeks ago (2) Pain level max: 10 Pain level now: 10 Improved by: toradol, benadryl Worsened by: light, noise, movement. - Additonal information Additional information: 18 weeks . History of migraines. States headaches for the past 2 weeks. Seen here last night and improved with medications. Headache returned today. took fioricet without relief earlier today. Also had LLQ abd cramping earlier. No vaginal bleeding or fluid leakage. Review of Systems Ten Systems: 10 systems reviewed and negative Constitutional: denies: Fever, Chills Ears: denies: Ear pain Nose: denies: Rhinorrhea / runny nose, Congestion Throat: denies: Sore throat Cardiac: denies: Chest pain / pressure Respiratory: denies: Cough GI: denies: Abdominal Pain, Nausea, Vomiting, Diarrhea Skin: denies: Rash Musculoskeletal: denies: Neck pain, Back pain Neurologic: denies: Head injury, LOC PD PAST MEDICAL HISTORY - Past Medical History Cardiovascular: Hypertension, High cholesterol Respiratory: None Endocrine/Autoimmune: Type 2 diabetes GI: GERD, Chronic constipation DOCUMENT REVIEWER: Ovarian cysts : None HEENT: None Psych: Anxiety Musculoskeletal: Fatigue Derm: None - Past Surgical History /DOCUMENT REVIEWER: section, Dilation and currettage HEENT: Tonsil/Adenoidectomy - Present Medications Home Medications: Ambulatory Orders Medication Instructions Recorded Confirmed Ibuprofen 800 mg PO DAILY 08/28/16 03/20/17 metFORMIN [Glucophage] 1,000 mg PO BID 08/28/16 03/20/17 Amitriptyline [Elavil] 06/12/18 Aspirin 06/12/18 Docusate Calcium 06/12/18 Insulin Aspart [Novolog Flexpen] 06/12/18 Losartan [Cozaar] 06/12/18 Omeprazole 06/12/18 Simvastatin 06/12/18 Benzonatate [Tessalon Perle] 100 - 200 mg PO TID PRN #30 capsule 09/01/18 Butalb/Acetaminophen/Caffeine 1 cap PO Q8H PRN #10 capsule 04/17/19 [Fioricet 50-300-40 mg Capsule] diphenhydrAMINE [Benadryl] 25 - 50 mg PO Q6H PRN #30 capsule 04/17/19 - Allergies Allergies/Adverse Reactions: Allergies Allergy/AdvReac Type Severity Reaction Status Date / Time iodine Allergy Rash Verified 04/18/19 15:50 Sulfa (Sulfonamide Allergy Rash Verified 04/18/19 15:50 Antibiotics) - Social History Does the pt smoke?: No Smoking Status: Never smoker Does the pt drink ETOH?: Yes Does the pt have substance abuse?: No - Immunizations Immunizations are current?: Yes PD ED PE NORMAL - Vitals Vital signs reviewed: Yes - General General: Alert and oriented X 3, No acute distress - HEENT HEENT: Atraumatic, PERRL, EOMI, Ears normal, Moist mucous membranes, Pharynx benign - Neck Neck: Supple, no meningeal sign, No bony TTP - Cardiac Cardiac: RRR, Strong equal pulses - Respiratory Respiratory: No respiratory distress, Clear bilaterally - Abdomen Abdomen: Soft, Non tender, Non distended - Derm Derm: Warm and dry - Extremities Extremities: No edema - Neuro Neuro: Alert and oriented X 3, jewelry mold maker 2-12 intact, No motor deficit, No sensory deficit, Normal speech Eye Opening: Spontaneous Motor: Obeys Commands Verbal: Oriented GCS Score: 15 Results - Vitals Vitals: Vital Signs - 24 hr 04/18/19 04/18/19 15:50 17:17 Temperature 36.5 C Heart Rate 99 99 Respiratory 16 20 Rate Blood Pressure 138/82 H 141/93 H O2 Saturation 99 99 Oxygen O2 Source Room air - Labs Labs: Laboratory Tests 04/18/19 04/18/19 04/18/19 16:20 16:20 17:20 WBC 12.0 H RBC 4.81 Hgb 12.9 Hct 39.7 MCV 82.5 MCH 26.8 L MCHC 32.5 RDW 13.9 Plt Count 293 MPV 10.2 Neut # (Auto) 8.2 H Lymph # (Auto) 2.9 [place] # (Auto) 0.7 Eos # (Auto) 0.2 Baso # (Auto) 0.0 Absolute Nucleated RBC 0.00 Nucleated RBC % 0.0 Sodium 136 Potassium 4.0 Chloride 105 Carbon Dioxide 22 Anion Gap 9.0 BUN 8 Creatinine 0.6 Estimated GFR (MDRD) 112 Glucose 238 H Calcium 8.9 Total Bilirubin 0.2 AST 14 ALT 15 Alkaline Phosphatase 76 Total Protein 7.4 Albumin 3.6 Globulin 3.8 Albumin/Globulin Ratio 0.9 L Lipase 42 Urine Color YELLOW Urine Clarity CLEAR Urine pH 7.0 Ur Specific [place] 1.010 Urine Protein NEGATIVE Urine Glucose (UA) >=1000 H Urine Ketones NEGATIVE Urine Occult Blood NEGATIVE Urine Nitrite NEGATIVE Urine Bilirubin NEGATIVE Urine Urobilinogen 0.2 (NORMAL) Ur Leukocyte Esterase NEGATIVE Ur Microscopic Review NOT INDICATED Urine Culture Comments NOT INDICATED - Rads (name of study) head CT Radiology: Prelim report reviewed, EMP read contemporaneously, See rad report (Normal) PD MEDICAL DECISION MAKING - ED course Complexity details: reviewed results, re-evaluated patient, considered differential, d/w patient ED course: Patient with continuing headache of unclear etiology. We will follow-up with her doctor for further care. She is well-appearing, nontoxic. Afebrile. Normal head CT. Feels better after Toradol, Benadryl, Phenergan and a dose of Dilaudid. Patient counseled regarding signs and symptoms for which I believe and urgent re-evaluation would be necessary. Patient with good understanding of and agreement to plan and is comfortable going home at this time This document was made in part using voice recognition software. While efforts are made to proofread this document, sound alike and grammatical errors may occur. Departure - Departure Disposition: Home, Self Care Clinical Impression: Migraine Qualifiers: Migraine type: unspecified Status migrainosus presence: without status migrainosus Intractability: not intractable Qualified Code(s): G43.909 - Migraine, unspecified, not intractable, without status migrainosus Instructions: ED Cephalgia Unspecified Follow-Up: SIMBA SWANSON DO [Primary Care Provider] - Tomorrow Comments: Follow-up with your doctor tomorrow for further care. Return if you worsen. Follow-up with your OB on Friday as scheduled. Your head CT is normal tonight.
[2019-04-18] MEDS ORDERED: HYDROmorphone 1 MG/ML CARPUJECT IVP STA (16:33)
[2019-04-18 16:34] LABS: BASOPHILS % (AUTO) 0.3 %; EOSINOPHILS # (AUTO) 0.2 10^3/uL (0.0-0.7); EOSINOPHILS % (AUTO) 1.7 %; HGB - HEMOGLOBIN 12.9 g/dL (12.0-16.0); LYMPHOCYTES # (AUTO) 2.9 10^3/uL (1.5-3.5); LYMPHOCYTES % (AUTO) 23.8 %; MEAN CORPUSCULAR HEMOGLOBIN 26.8 pg (27.0-31.0); MEAN CORPUSCULAR HGB CONC 32.5 g/dL (32.0-36.0); MEAN CORPUSCULAR VOLUME 82.5 fL (81.0-99.0); MEAN PLATELET VOLUME 10.2 fL (7.9-10.8); MONOCYTES # (AUTO) 0.7 10^3/uL (0.0-1.0); MONOCYTES % (AUTO) 5.5 %; NEUTROPHILS # (AUTO) 8.2 10^3/uL (1.5-6.6); NEUTROPHILS % (AUTO) 68.1 %; PLT - PLATELET COUNT 293 10^3/uL (130-450); RED BLOOD COUNT 4.81 10^6/uL (4.20-5.40); RED CELL DISTRIBUTION WIDTH 13.9 % (12.0-15.0)
--- NOTE | 2019-04-18 16:43 | CT Report ---
Reason: headache for 2 weeks Procedure Date: 04/18/2019 Accession Number: [id number] / [id number] Procedure: CT - HEAD WO CPT Code: FULL RESULT: EXAM: CT HEAD EXAM DATE: 04/18/2019 04:31 PM. CLINICAL HISTORY: Headache for 2 weeks. COMPARISON: HEAD ANGIO 08/28/2016 7:11 PM. TECHNIQUE: Multiaxial CT images were obtained from the foramen magnum to the vertex. Reformats: Sagittal and coronal. IV contrast: None. In accordance with CT protocol optimization, one or more of the following dose reduction techniques were utilized for this exam: automated exposure control, adjustment of mA and/or KV based on patient size, or use of iterative reconstructive technique. FINDINGS: Parenchyma: No intraparenchymal hemorrhage. No evidence of mass, midline shift, or CT findings of infarction. Carlos-white differentiation is distinct. Extraaxial Spaces: Normal for age. No subdural or epidural collections identified. Ventricles: Normal in size and position. Sinuses and Orbits: Imaged paranasal sinuses, orbits, and mastoids show no significant abnormality. Bones: No evidence of fracture or calvarial defect. Other: None. IMPRESSION: No acute intracranial abnormality. RADIA
[2019-04-18 16:45] LABS: ALBUMIN 3.6 g/dL (3.2-5.5); ALBUMIN/GLOBULIN RATIO 0.9 (1.0-2.2); BILIRUBIN,TOTAL 0.2 mg/dL (0.2-1.0); CALCIUM 8.9 mg/dL (8.5-10.3); CREATININE 0.6 mg/dL (0.4-1.0); TOTAL PROTEIN 7.4 g/dL (6.7-8.2)
[2019-04-18 17:24] LABS: BILIRUBIN,URINE NEGATIVE (NEGATIVE); GLUCOSE, URINE (UA) >=1000 mg/dL (NEGATIVE); KETONES,URINE (UA) NEGATIVE (NEGATIVE); LEUKOCYTE ESTERASE, URINE NEGATIVE (NEGATIVE); NITRITE,URINE NEGATIVE (NEGATIVE); OCCULT BLOOD,URINE NEGATIVE (NEGATIVE); PROTEIN,URINE NEGATIVE (NEGATIVE); UROBILINOGEN,URINE 0.2 (NORMAL) E.U./dL (NORMAL)
[2019-04-18 17:28] LABS: CLARITY,URINE CLEAR (CLEAR)
[2019-04-18] MEDS ORDERED: PROMETHAZINE INJ 25 MG in SODIUM CHLORIDE 0.9% 50 ML IV STA (17:30)
[2019-04-18] MEDS ORDERED: KETOROLAC 30 MG/ML VIAL IVP STA (17:30)
[2019-04-18] MEDS ORDERED: diphenhydrAMINE INJ 50 MG/ML VIAL IVP STA (17:30)
[2019-04-18 18:47] VITALS: BP 109/78
== END 2019-04-18 18:45 | disposition home or self-care (01) ==
LOC: ED 15:41
DX: O99.89 Other specified diseases and conditions complicating pregnancy, childbirth and the puerperium (principal); G43.909 Migraine, unspecified, not intractable, without status migrainosus; O24.911 Unspecified diabetes mellitus in pregnancy, first trimester; I10 Essential (primary) hypertension; Z79.4 Long term (current) use of insulin
CPT/HCPCS: 36415; 70450; 80053; 81003; 83690; 85025; 96365; 96375; 99284; J1170; J1200; J7040; 81001; 87086

== ENCOUNTER 2019-05-03 17:42 | Outpatient (CLI) | payer OTHER ==
[2019-05-03 18:46] LABS: BILIRUBIN,URINE NEGATIVE (NEGATIVE); GLUCOSE, URINE (UA) >=1000 mg/dL (NEGATIVE); KETONES,URINE (UA) NEGATIVE (NEGATIVE); LEUKOCYTE ESTERASE, URINE NEGATIVE (NEGATIVE); NITRITE,URINE NEGATIVE (NEGATIVE); OCCULT BLOOD,URINE NEGATIVE (NEGATIVE); PROTEIN,URINE NEGATIVE (NEGATIVE); UROBILINOGEN,URINE 0.2 (NORMAL) E.U./dL (NORMAL)
--- NOTE | 2019-05-03 18:57 | PROVIDER PROGRESS NOTE ---
- HPI Chief Complaint: Other (Left-sided groin pain) Current : Vital Signs Temperature 37 C 05/03/19 18:20 Heart Rate 88 05/03/19 18:20 Respiratory Rate 16 05/03/19 18:20 Blood Pressure 120/80 05/03/19 18:20 Temperature 37 C 05/03/19 18:20 Heart Rate 88 05/03/19 18:20 Respiratory Rate 16 05/03/19 18:20 Blood Pressure 120/80 05/03/19 18:20 O2 Saturation The patient comes in tonight complaining of left-sided groin pain. She is a 7 para 1-0-5-1. She is at 20 weeks and 3 days gestation.She states the pain is been present for the past 2 days. It does seem a little worse with movement, but she states that comes and goes at random times.She denies any vaginal bleeding or fluid.She denies any fevers, chills, nausea, vomiting, constipation or diarrhea.She is being followed for this at [facility] in [place]. - Exam Lungs: Lungs are clear to auscultation bilaterally without wheezes, rales or rhonchi Heart: Heart has a regular rate and rhythm without murmur, S3-S4 gallop rhythms Abdomen: The abdomen is soft, pliable and nontender. The uterus is soft and nontender. It is palpated to the level of the umbilicus.The old surgical scars are noted. heart tones are noted in the 140s.Riaz sign is negative. Laboratory Results - last 24 hr 05/03/19 05/03/19 18:25 18:52 WBC 13.4 H RBC 4.50 Hgb 12.3 Hct 37.7 MCV 83.8 MCH 27.3 MCHC 32.6 RDW 13.6 Plt Count 288 MPV 9.8 Neut # (Auto) 9.7 H Lymph # (Auto) 2.6 [place] # (Auto) 0.6 Eos # (Auto) 0.2 Baso # (Auto) 0.0 Absolute Nucleated RBC 0.00 Nucleated RBC % 0.0 Urine Color YELLOW Urine Clarity CLEAR Urine pH 6.0 Ur Specific [place] 1.020 Urine Protein NEGATIVE Urine Glucose (UA) >=1000 H Urine Ketones NEGATIVE Urine Occult Blood NEGATIVE Urine Nitrite NEGATIVE Urine Bilirubin NEGATIVE Urine Urobilinogen 0.2 (NORMAL) Ur Leukocyte Esterase NEGATIVE Urine RBC None Seen Urine WBC 0-3 Ur Squamous Epith Cells FEW Squamous Urine Bacteria None Seen Urine Culture Comments NOT INDICATED - Plan Plan: Impression: 1. Round ligament syndrome 2. Intrauterine at 20 weeks 3 days gestation 3. Previous section 4. Diabetes mellitus 5. Advanced maternal age Plan:We are going to allow the patient to be discharged home. I do think that she does suffer at this point from round ligament syndrome. She will use warm moist heat. She has an appointment with her OB in 48 hours. She was encouraged to keep that appointment.If she has any further problems she will either return to our OB department or call her primary anesthesia assistant.
[2019-05-03 18:59] LABS: BASOPHILS % (AUTO) 0.2 %; EOSINOPHILS # (AUTO) 0.2 10^3/uL (0.0-0.7); EOSINOPHILS % (AUTO) 1.7 %; HGB - HEMOGLOBIN 12.3 g/dL (12.0-16.0); LYMPHOCYTES # (AUTO) 2.6 10^3/uL (1.5-3.5); LYMPHOCYTES % (AUTO) 19.7 %; MEAN CORPUSCULAR HEMOGLOBIN 27.3 pg (27.0-31.0); MEAN CORPUSCULAR HGB CONC 32.6 g/dL (32.0-36.0); MEAN CORPUSCULAR VOLUME 83.8 fL (81.0-99.0); MEAN PLATELET VOLUME 9.8 fL (7.9-10.8); MONOCYTES # (AUTO) 0.6 10^3/uL (0.0-1.0); MONOCYTES % (AUTO) 4.8 %; NEUTROPHILS # (AUTO) 9.7 10^3/uL (1.5-6.6); NEUTROPHILS % (AUTO) 72.5 %; PLT - PLATELET COUNT 288 10^3/uL (130-450); RED CELL DISTRIBUTION WIDTH 13.6 % (12.0-15.0); WHITE BLOOD COUNT 13.4 x10^3/uL (4.8-10.8)
[2019-05-03 19:07] LABS: CLARITY,URINE CLEAR (CLEAR)
[2019-05-03 19:14] LABS: BACTERIA,URINE None Seen /HPF (None Seen); RBC,URINE None Seen /HPF (0-5); SQUAMOUS EPITHELIAL CELL,UR FEW Squamous (<= Few)
[2019-05-03 20:10] VITALS: BP 124/79
== END 2019-05-03 19:55 | disposition home or self-care (01) ==
LOC: WFO 17:42 → ED 17:42 → FBP 17:43 → ED 18:04 → FBP 18:04 → ED 18:29 → FBP 18:29 → UNDOADMOB 18:33 → ED 19:50 → WFO 19:55 → UNDODISOB 19:55
PROVIDERS: ATTEND Obstetrics & Gynecology
DX: O99.89 Other specified diseases and conditions complicating pregnancy, childbirth and the puerperium (principal); M24.20 Disorder of ligament, unspecified site; O34.219 Maternal care for unspecified type scar from previous cesarean delivery; O24.912 Unspecified diabetes mellitus in pregnancy, second trimester; Z3A.20 20 weeks gestation of pregnancy
CPT/HCPCS: 36415; 81001; 85025; 87086; 99213

== ENCOUNTER 2019-05-06 12:50 | Emergency (ER) | payer OTHER ==
[2019-05-06] MEDS ORDERED: HYDROmorphone 1 MG/ML CARPUJECT IM STA ×3 (15:57→18:01)
--- NOTE | 2019-05-06 15:58 | ED Physician Documentation ---
History of Present Illness - Stated complaint Stated Complaint: LEG PAIN RT - Chief complaint Chief Complaint: Ext Problem - History obtained from History obtained from: Patient (38-year-old woman with diabetes, 21 weeks . Last year she had a an L5-S1 microdiscectomy due to severe radiculopathy. Subsequent to that her back was much better the last few days she is developed some right low back pain which today is severe with shocklike cramping pain down the buttock and posterior right thigh similar to prior radiculopathy. Today she is had Tylenol without relief. 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 : None HEENT: None Psych: Anxiety Musculoskeletal: Fatigue Derm: None - Past Surgical History /SOFTWARE INSTALLATION ENGINEER: section, Dilation and currettage HEENT: Tonsil/Adenoidectomy - Present Medications Home Medications: Ambulatory Orders Medication Instructions Recorded Confirmed Ibuprofen 800 mg PO DAILY 08/28/16 03/20/17 metFORMIN [Glucophage] 1,000 mg PO BID 08/28/16 03/20/17 Amitriptyline [Elavil] 06/12/18 Aspirin 06/12/18 Docusate Calcium 06/12/18 Insulin Aspart [Novolog Flexpen] 06/12/18 Losartan [Cozaar] 06/12/18 Omeprazole 06/12/18 Simvastatin 06/12/18 Benzonatate [Tessalon Perle] 100 - 200 mg PO TID PRN #30 capsule 09/01/18 Butalb/Acetaminophen/Caffeine 1 cap PO Q8H PRN #10 capsule 04/17/19 [Fioricet 50-300-40 mg Capsule] diphenhydrAMINE [Benadryl] 25 - 50 mg PO Q6H PRN #30 capsule 04/17/19 Oxycodone HCl/Acetaminophen 1 - 2 each PO Q6H PRN #20 tablet 05/06/19 [Percocet 5-325 mg Tablet] Promethazine [Phenergan] 25 mg PO Q6H PRN #10 tab 05/06/19 predniSONE [Deltasone] 20 mg PO [id number] #21 tab 05/06/19 - Allergies Allergies/Adverse Reactions: Allergies Allergy/AdvReac Type Severity Reaction Status Date / Time iodine Allergy Rash Verified 05/06/19 12:53 Sulfa (Sulfonamide Allergy Rash Verified 05/06/19 12:53 Antibiotics) - Social History Does the pt smoke?: No Smoking Status: Never smoker Does the pt drink ETOH?: Yes Does the pt have substance abuse?: No - Immunizations Immunizations are current?: Yes PD ED PE NORMAL - Vitals Vital signs reviewed: Yes - General General: Alert and oriented X 3, No acute distress, Other (She is laying in a left lateral decubitus position, comfortable at rest but winces with motion.) - Abdomen Abdomen: Soft, Non tender - Back Back: No CVA TTP, No spinal TTP, Other (The patient has equal and normal Achilles and patellar reflexes bilaterally. Normal sensation in all areas of the legs. Patient denies saddle anesthesia. Normal strength in flexion- extension at the ankles, knees, and flexion of the hips.) - Neuro Neuro: Alert and oriented X 3, Normal speech Results - Vitals Vitals: Vital Signs - 24 hr 05/06/19 05/06/19 05/06/19 12:53 15:46 17:41 Temperature 36.5 C 36.3 C L 36.2 C L Heart Rate 92 84 84 Respiratory 16 16 20 Rate Blood Pressure 117/79 104/67 130/94 H O2 Saturation 97 95 99 Oxygen O2 Source Room air PD MEDICAL DECISION MAKING - ED course ED course: 38-year-old woman with history of radiculopathy presents with a recurrent radiculopathy complicated by second trimester . She was given divided doses of pain medications with some relief but it was incomplete, however we discussed that since she is the goal would be functionality, not pain- free and she agrees. Departure - Departure Disposition: 01 Home, Self Care Clinical Impression: Lumbar radiculopathy, acute Condition: Good Record reviewed to determine appropriate education?: Yes Instructions: Lumbar Radiculopathy Prescriptions: Oxycodone HCl/Acetaminophen [Percocet 5-325 mg Tablet] 1 - 2 each PO Q6H PRN #20 tablet PRN Reason: pain predniSONE [Deltasone] 20 mg PO [id number] #21 tab Promethazine [Phenergan] 25 mg PO Q6H PRN #10 tab PRN Reason: Nausea / Vomiting Comments: Follow-up with your spine surgeon as soon as possible, [place] return for new or worsening symptoms. Do not drink or drive with the prescription medications. Take as little of the medication as possible to make you functional.
[2019-05-06] MEDS ORDERED: DEXAMETHASONE 10 MG/ML VIAL PO STA (16:33)
[2019-05-06] MEDS ORDERED: CHERRY SYRUP 10 ML UDC PO ONE (16:33)
[2019-05-06] MEDS ORDERED: ONDANSETRON ODT 4 MG TABLET TL STA ×2 (17:00→17:03)
[2019-05-06 17:43] VITALS: BP 130/94
[2019-05-06] MEDS ORDERED: PROMETHAZINE 25 MG/1 ML VIAL IM STA (18:01)
== END 2019-05-06 18:31 | disposition home or self-care (01) ==
LOC: ED 12:50
DX: O99.89 Other specified diseases and conditions complicating pregnancy, childbirth and the puerperium (principal); M54.16 Radiculopathy, lumbar region; O10.912 Unspecified pre-existing hypertension complicating pregnancy, second trimester; O24.112 Pre-existing type 2 diabetes mellitus, in pregnancy, second trimester; E11.9 Type 2 diabetes mellitus without complications; Z79.4 Long term (current) use of insulin; O09.522 Supervision of elderly multigravida, second trimester; Z3A.21 21 weeks gestation of pregnancy
CPT/HCPCS: 96372; 99283; J1170; Q0162

== ENCOUNTER 2019-05-26 00:19 | Outpatient (CLI) | payer OTHER ==
[2019-05-26 00:47] VITALS: BP 124/72
--- NOTE | 2019-05-28 14:08 | PROVIDER PROGRESS NOTE ---
- HPI Current : Current 7 Para 1 Vital Signs Temperature 36.6 C 05/26/19 00:31 Heart Rate 102 H 05/26/19 00:31 Respiratory Rate 18 05/26/19 00:31 Blood Pressure 124/72 05/26/19 00:31 O2 Saturation 100 05/26/19 00:31 Temperature 36.6 C 05/26/19 00:31 Heart Rate 102 H 05/26/19 00:31 Respiratory Rate 18 05/26/19 00:31 Blood Pressure 124/72 05/26/19 00:31 O2 Saturation 100 05/26/19 00:31 This is a late entry note. The patient was seen in the regulatory administrator hours of 05/26/2019 in L&D.This patient was sent to the OB department at 23 weeks gestation to rule out any signs of labor. The patient presented to the ER with back pain. The patient denies any contractions, fever, chills, vaginal bleeding or vaginal fluid.She did notes good movement. - Exam No signs of labor were noted today. The abdomen appeared to be soft and nontender the uterus was soft and nontender. - Plan Plan: Intrauterine at 23 weeks gestation Back pain The patient was sent back to ER for further evaluation and treatment since this appears not to be an obstetrical problem.
== END 2019-05-26 01:05 | disposition home or self-care (01) ==
LOC: WFO 00:19 → FBP 00:24 → WFO 01:05
PROVIDERS: ATTEND Obstetrics & Gynecology
DX: O99.89 Other specified diseases and conditions complicating pregnancy, childbirth and the puerperium (principal); M54.9 Dorsalgia, unspecified; Z3A.23 23 weeks gestation of pregnancy
CPT/HCPCS: 99212

== ENCOUNTER 2019-05-26 01:06 | Emergency (ER) | payer OTHER ==
--- NOTE | 2019-05-26 01:59 | ED Physician Documentation ---
PD HPI BACK PAIN - Stated complaint Stated Complaint: R BK PX - Chief complaint Chief Complaint: General - History obtained from History obtained from: Patient - History of Present Illness Timing - onset: How many hours ago (She has had an increase in her ongoing back pain in the last 6 to 10 hours after having an epidural injection for herniated disc yesterday. She had been having severe low back pain requiring hospitalization for pain control and also oral medications outpatient. She had an epidural injection a week or 2 ago with some improvement. She had another one yesterday and is actually feeling worse pain after that which is continued overnight.) Timing - duration: Hours (for the worse pain over baseline) Timing - details: Gradual onset, Still present Location: Lower, Right Quality: Pain, Sharp, Aching Associated symptoms: Numbness (lateral right lower leg for the past month or more.). No: Fever, Weakness Worsened by: Movement Contributing factors: Other (herniated discs with right sciatica.). No: Lif ting, Twisting, Trauma Recently seen: Clinic (earlier today, was seen in Back Surgery clinic with low back injection done. Patient having worse/consistent pain despite the injection. No new weakness nor numbness. Due to her at 23 weeks, the spine surgeon is not wanting to do surgery until after she delivers.), Other (She had been having the back pain with radiation down the right leg for over a month. She is . She been evaluated with an MRI of the spine showing herniated disks. She had gotten referred to a back surgeon who is treating her with inje ction and therapy and medications. The patient states it is a surgical herniated disc but the surgeon wants surgery completed and not do surgery during it.) Review of Systems Constitutional: denies: Fever, Chills, Myalgias Nose: denies: Rhinorrhea / runny nose, Congestion Throat: denies: Sore throat Cardiac: denies: Chest pain / pressure Respiratory: denies: Dyspnea, Cough GI: denies: Nausea, Vomiting, Diarrhea : denies: Dysuria, Vaginal bleeding Skin: denies: Rash, Lesions Neurologic: reports: Numbness (right lateral side of foot). 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: 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, Ovarian cysts : None HEENT: None Psych: Anxiety Musculoskeletal: Fatigue, Chronic back pain Derm: Eczema - Past Surgical History Past Surgical History: Yes Ortho: Spine surgery /PHYSICAL THERAPY NURSE: section, Dilation and currettage HEENT: Tonsil/Adenoidectomy - Present Medications Home Medications: Ambulatory Orders Medication Instructions Recorded Confirmed Ibuprofen 800 mg PO DAILY 08/28/16 03/20/17 metFORMIN [Glucophage] 1,000 mg PO BID 08/28/16 03/20/17 Amitriptyline [Elavil] 06/12/18 Aspirin 06/12/18 Docusate Calcium 06/12/18 Insulin Aspart [Novolog Flexpen] 06/12/18 Losartan [Cozaar] 06/12/18 Omeprazole 06/12/18 Simvastatin 06/12/18 Benzonatate [Tessalon Perle] 100 - 200 mg PO TID PRN #30 capsule 09/01/18 Butalb/Acetaminophen/Caffeine 1 cap PO Q8H PRN #10 capsule 04/17/19 [Fioricet 50-300-40 mg Capsule] diphenhydrAMINE [Benadryl] 25 - 50 mg PO Q6H PRN #30 capsule 04/17/19 Oxycodone HCl/Acetaminophen 1 - 2 each PO Q6H PRN #20 tablet 05/06/19 [Percocet 5-325 mg Tablet] Promethazine [Phenergan] 25 mg PO Q6H PRN #10 tab 05/06/19 predniSONE [Deltasone] 20 mg PO [id number] #21 tab 05/06/19 Cyclobenzaprine [Flexeril] 10 mg PO TID PRN #20 tablet 05/07/19 HYDROmorphone [Dilaudid] 2 mg PO Q4-6H PRN #25 tablet 05/26/19 Naproxen 500 mg PO BID #20 tablet 05/26/19 hydrOXYzine PAMOATE [Vistaril] 25 mg PO Q6H PRN #20 capsule 05/26/19 - Allergies Allergies/Adverse Reactions: Allergies Allergy/AdvReac Type Severity Reaction Status Date / Time iodine Allergy Rash Verified 05/26/19 01:20 Sulfa (Sulfonamide Allergy Rash Verified 05/26/19 01:20 Antibiotics) - Social History Does the pt smoke?: No Smoking Status: Never smoker Does the pt drink ETOH?: Yes Does the pt have substance abuse?: No - Immunizations Immunizations are current?: Yes PD ED PE NORMAL - Vitals Vital signs reviewed: Yes - General General: Alert and oriented X 3, Well developed/nourished, Other (appears in pain from low back) - Neck Neck: Supple, no meningeal sign, No adenopathy - Cardiac Cardiac: RRR, No murmur - Respiratory Respiratory: Clear bilaterally - Abdomen Abdomen: Soft, Non tender, Other (gravid with fundus at umbilicus) - Back Back: No spinal TTP, Other (no redness nor swelling at injection site. ) - Derm Derm: Normal color, Warm and dry - Extremities Extremities: No edema, No calf tenderness / cord - Neuro Neuro: Alert and oriented X 3, No motor deficit, Normal speech, Other (decreased sensation right side of lower leg/foot. Normal motor. normal knee reflexes. Normal sensation in perirectal area. ) Results - Vitals Vitals: Vital Signs - 24 hr 05/26/19 05/26/19 05/26/19 01:18 03:22 06:35 Temperature 36.6 C Heart Rate 105 H 100 105 H Respiratory 19 16 18 Rate Blood Pressure 140/83 H 128/83 H 108/71 O2 Saturation 100 97 99 Oxygen O2 Source Room air PD MEDICAL DECISION MAKING - ED course Complexity details: re-evaluated patient (She was given IV medications for pain and spasm here. She is which limits choices but there is still reasonable choices. She is not on any outpatient narcotic medicine. She is still in an interval of time that would allow for NSAID use still.), considered differential (Herniated disc with sciatic symptoms. There are not any new areas of numbness or weakness. She has not had any bowel or bladder dysfunction. She gotten a epidural injection earlier in the day and is having consistent or increased pain. There is no signs of infection at the skin site.), d/w patient ED course: Improvement with doses of Dilaudid and did get a supplemental improvement with the low-dose ketamine. I did reference that it needs class C in . Departure - Departure Disposition: 01 Home, Self Care Clinical Impression: Radiculitis of leg Low back pain Qualifiers: Chronicity: acute Back pain laterality: unspecified Sciatica presence: with sciatica Sciatica laterality: sciatica of right side Qualified Code(s): M54.41 - Lumbago with sciatica, right side Qualifiers: Weeks of gestation: 23 weeks Qualified Code(s): Z3A.23 - 23 weeks gestation of Condition: Stable Record reviewed to determine appropriate education?: Yes Prescriptions: HYDROmorphone [Dilaudid] 2 mg PO Q4-6H PRN #25 tablet PRN Reason: Pain hydrOXYzine PAMOATE [Vistaril] 25 mg PO Q6H PRN #20 capsule PRN Reason: Nausea / Vomiting Naproxen 500 mg PO BID #20 tablet Comments: Continue your current medications including the nortriptyline and cyclobenzaprine. Add naproxen anti-inflammatory twice daily with food for the next 7 to 10 days. This is still okay at this point in . Add hydromorphone orally every 4-6 hours regularly for the next 2 to 3 days and then as needed. Add hydroxyzine as needed for nausea or sleep. Follow-up with your back specialist later today as planned and with the maternal- service Friday as planned. Return if worsening. Discharge Date/Time: 05/26/19 06:52
[2019-05-26] MEDS ORDERED: HYDROmorphone 1 MG/ML CARPUJECT IVP STA ×4 (02:29→05:16)
[2019-05-26] MEDS ORDERED: KETOROLAC 30 MG/ML VIAL IVP STA (02:29)
[2019-05-26] MEDS ORDERED: diphenhydrAMINE INJ 50 MG/ML VIAL IVP STA ×2 (02:29→03:40)
[2019-05-26] MEDS ORDERED: KETAMINE 500 MG/10 ML VIAL IVP STA (05:16)
[2019-05-26 06:35] VITALS: BP 108/71
== END 2019-05-26 06:52 | disposition home or self-care (01) ==
LOC: ED 01:06
DX: O99.89 Other specified diseases and conditions complicating pregnancy, childbirth and the puerperium (principal); M54.41 Lumbago with sciatica, right side; O24.112 Pre-existing type 2 diabetes mellitus, in pregnancy, second trimester; O10.912 Unspecified pre-existing hypertension complicating pregnancy, second trimester; E11.9 Type 2 diabetes mellitus without complications; Z79.84 Long term (current) use of oral hypoglycemic drugs; Z3A.23 23 weeks gestation of pregnancy; Z79.82 Long term (current) use of aspirin
CPT/HCPCS: 96374; 96375; 96376; 99212; 99284; 99285; J1170; J1200

== ENCOUNTER 2019-05-30 03:13 | Emergency (ER) | payer OTHER ==
--- NOTE | 2019-05-30 03:33 | ED Physician Documentation ---
History of Present Illness - Stated complaint Stated Complaint: LOWER BACK PX/ RIGHT LEG - Chief complaint Chief Complaint: Back Pain - Additonal information Additional information: This is a 38-year-old female who is currently 24 weeks who presents with recurrence/persistence of her lower back and right gluteal pain. Patient began having lower back pain years ago, she had a surgery which improved her symptoms in the past, but then during this she had recurrence of pain in her lower back radiating down her right leg. She has been to the emergency department multiple times for this, and she presented to [facility] recently and was admitted there for intractable back pain, MRI was performed which showed 2 bulging disks. The neurosurgeons stated that she was a poor candidate for surgery given her , and they would like to wait to operate on her until after she delivers. She has received steroid injections with minimal relief, and she is on gabapentin, Dilaudid, naproxen, nortriptyline, but she is still having significant pain, today her pain worsened so she presented to the emergency department. She does have some tingling on her right foot which is been present for weeks and is unchanged tonight. No weakness. No bowel or bladder complaints. No dysuria or fever. 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: 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, Ovarian cysts : None HEENT: None Psych: Anxiety Musculoskeletal: Fatigue, Chronic back pain Derm: Eczema - Past Surgical History Past Surgical History: Yes Ortho: Spine surgery /CASH MANAGEMENT SPECIALIST: section, Dilation and currettage HEENT: Tonsil/Adenoidectomy - Present Medications Home Medications: Ambulatory Orders Medication Instructions Recorded Confirmed Ibuprofen 800 mg PO DAILY 08/28/16 03/20/17 metFORMIN [Glucophage] 1,000 mg PO BID 08/28/16 03/20/17 Amitriptyline [Elavil] 06/12/18 Aspirin 06/12/18 Docusate Calcium 06/12/18 Insulin Aspart [Novolog Flexpen] 06/12/18 Losartan [Cozaar] 06/12/18 Omeprazole 06/12/18 Simvastatin 06/12/18 Benzonatate [Tessalon Perle] 100 - 200 mg PO TID PRN #30 capsule 09/01/18 Butalb/Acetaminophen/Caffeine 1 cap PO Q8H PRN #10 capsule 04/17/19 [Fioricet 50-300-40 mg Capsule] diphenhydrAMINE [Benadryl] 25 - 50 mg PO Q6H PRN #30 capsule 04/17/19 Oxycodone HCl/Acetaminophen 1 - 2 each PO Q6H PRN #20 tablet 05/06/19 [Percocet 5-325 mg Tablet] Promethazine [Phenergan] 25 mg PO Q6H PRN #10 tab 05/06/19 predniSONE [Deltasone] 20 mg PO [id number] #21 tab 05/06/19 Cyclobenzaprine [Flexeril] 10 mg PO TID PRN #20 tablet 05/07/19 HYDROmorphone [Dilaudid] 2 mg PO Q4-6H PRN #25 tablet 05/26/19 Naproxen 500 mg PO BID #20 tablet 05/26/19 hydrOXYzine PAMOATE [Vistaril] 25 mg PO Q6H PRN #20 capsule 05/26/19 Ondansetron Odt [Zofran] 4 mg TL Q6H PRN #10 tablet 05/30/19 - Allergies Allergies/Adverse Reactions: Allergies Allergy/AdvReac Type Severity Reaction Status Date / Time iodine Allergy Rash Verified 05/26/19 01:20 Sulfa (Sulfonamide Allergy Rash Verified 05/26/19 01:20 Antibiotics) - Social History Does the pt smoke?: No Smoking Status: Never smoker Does the pt drink ETOH?: Yes Does the pt have substance abuse?: No - Immunizations Immunizations are current?: Yes PD ED PE NORMAL - Vitals Vital signs reviewed: Yes - General General: Alert and oriented X 3, No acute distress - HEENT HEENT: PERRL - Neck Neck: Supple, no meningeal sign - Cardiac Cardiac: RRR - Respiratory Respiratory: No respiratory distress - Abdomen Abdomen: Soft, Non tender, Non distended - Back Back: Other (Tenderness palpation of the gluteal region and the sacrum. No significant midline tenderness on my exam. Patient has 5 out of 5 strength ankle dorsiflexion and plantarflexion, she endorses some paresthesias in the right foot but she is able to feel light touch over the entire bilateral lower extremities.) - Derm Derm: Warm and dry - Extremities Extremities: No deformity - Neuro Neuro: Alert and oriented X 3 - Psych Psych: Normal mood, Normal affect Results - Vitals Vitals: Vital Signs - 24 hr 05/30/19 05/30/19 05/30/19 03:23 04:05 04:59 Temperature 36.6 C Heart Rate 99 107 H 89 Respiratory 17 17 17 Rate Blood Pressure 143/87 H 148/94 H 139/91 H O2 Saturation 100 98 100 05/30/19 05/30/19 05/30/19 05:30 07:00 07:37 Temperature Heart Rate 94 97 105 H Respiratory 17 17 22 Rate Blood Pressure 129/89 H 141/79 H 152/92 H O2 Saturation 99 100 100 Oxygen O2 Source Room air PD MEDICAL DECISION MAKING - ED course Complexity details: considered differential (Disc herniation, radiculopathy, sciatica) ED course: On examination patient is uncomfortable but nontoxic-appearing. There are no objective neurologic abnormalities, on her exam, she has no red flags for cauda equina, and she has had a recent MRI imaging which shows some disc herniation without signs of cauda equina. She is on a significant number of medications which can be sedating for her pain, sounds like she is eager to have surgery on her back but given her is surgeons are not willing to operate at this time, which is understandable. I discussed with patient that I have concerns based on the number of pain medication she is taking, and that the medication such as Dilaudid that she is on have for tolerance and for addiction. I also explained that during these medications can cause some withdrawal symptoms and babies once they are born, and that the safety profile some of these medications in is not well known. Patient verbalized understanding, but states that her pain is so severe that she would like more pain medications today. IV was inserted and she was given 2 doses of of hydromorphone as well as Benadryl. This improved her pain somewhat but she was still in 8 out of 10 pain, and she requested ketamine since that seemed to help last time. I discussed with patient that ketamine is poorly studied in , and there have been some animal models which show potential problems with brain development for example in rats given ketamine. Patient would still like to ketamine, she clearly understands the risks uncertainty with this medication. A 0.1 mg/kg dose was given. She had mild improvement, after discussion she would like to go home to sleep and trial management with her home regimen. She was given one final dose of diphenhydramine and I discussed establishing with a pain specialist and follow up with her OB and spine team. I also discussed return precautions and she was discharged home. Departure - Departure Disposition: Home, Self Care Clinical Impression: Back pain Qualifiers: Back pain location: low back pain Chronicity: acute Back pain laterality: unspecified Sciatica presence: unspecified whether sciatica present Qualified Code(s): M54.5 - Low back pain Condition: Good Follow-Up: Your,OB [Other] SIMBA SWANSON DO [Primary Care Provider] - Prescriptions: Ondansetron Odt [Zofran] 4 mg TL Q6H PRN #10 tablet PRN Reason: Nausea / Vomiting Comments: You were seen today for continued back pain. This is a frustrating situation, as you have a known issue with your back that appears to need surgery, and so far we have not been able to find a regmin of medications that is both safe and effective for your pain. Given that you are , medications for pain and sedation are oftentimes more risky. Please continue your regimen of medications as prescribed by your OB and back surgery team. I also recommend speaking with a pain specialist and considering trying different non-medication pain control techniques (mindfulness, acupuncture, etc). If you are developing weakness in your legs, problems with urination or having bowel movements, or other new concerning symptoms, return to the emergency department. Discharge Date/Time: 05/30/19 08:10
[2019-05-30] MEDS ORDERED: diphenhydrAMINE INJ 50 MG/ML VIAL IVP STA ×2 (04:04→07:24)
[2019-05-30] MEDS ORDERED: HYDROmorphone 1 MG/ML CARPUJECT IVP STA (04:04)
[2019-05-30] MEDS ORDERED: HYDROmorphone 2 MG/ML VIAL IVP STA (04:46)
[2019-05-30] MEDS ORDERED: KETAMINE 500 MG/10 ML VIAL IVP STA (05:58)
[2019-05-30 07:38] VITALS: BP 152/92
[2019-05-30] MEDS ORDERED: ONDANSETRON 4 MG/2 ML VIAL IVP STA (07:48)
== END 2019-05-30 08:10 | disposition home or self-care (01) ==
LOC: ED 03:13
DX: O99.89 Other specified diseases and conditions complicating pregnancy, childbirth and the puerperium (principal); M54.5 Low back pain; I10 Essential (primary) hypertension; E11.9 Type 2 diabetes mellitus without complications; Z3A.24 24 weeks gestation of pregnancy; Z79.4 Long term (current) use of insulin
CPT/HCPCS: 96374; 96375; 96376; 99284; 99285; J1170; J1200

== ENCOUNTER 2019-06-01 09:26 | Emergency (ER) | payer OTHER ==
[2019-06-01] MEDS ORDERED: HYDROmorphone 2 MG TABLET PO STA (09:55)
--- NOTE | 2019-06-01 09:58 | ED Physician Documentation ---
PD HPI BACK PAIN - Stated complaint Stated Complaint: LOW BACK PX/24 WKS PREG - Chief complaint Chief Complaint: Back Pain - History obtained from History obtained from: Patient, Family - History of Present Illness Timing - onset: Chronic Timing - duration: Months Timing - details: Gradual onset Pain level max: 10 Pain level now: 10 Location: Lower, Right Quality: Pain Associated symptoms: No: Fever, Weakness, Numbness, Incontinent of urine, Unable to urinate, Hematuria, Incontinent of stool Improves with: Other (dilaudid) Worsened by: Movement Contributing factors: Other (states has a herniated disk and is having pain from this.) Recently seen: Not recently seen - Additional information Additional information: Patient with a long history of back pain. She had an MRI in 2017 that showed a herniated disc with right-sided nerve root impingement. This MRI was apparently repeated in [place] a few weeks ago showing similar findings. She has been to the emergency department on June 01, May 30, May 26, May 10, May 08, May 07, May 06, for the same issue. She states that she was admitted to [facility] in [place] on May 10 for low back pain. 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: 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, Ovarian cysts : None HEENT: None Psych: Anxiety Musculoskeletal: Fatigue, Chronic back pain Derm: Eczema - Past Surgical History Past Surgical History: Yes Ortho: Spine surgery /BULK MAIL TECHNICIAN: section, Dilation and currettage HEENT: Tonsil/Adenoidectomy - Present Medications Home Medications: Ambulatory Orders Medication Instructions Recorded Confirmed Ibuprofen 800 mg PO DAILY 08/28/16 03/20/17 metFORMIN [Glucophage] 1,000 mg PO BID 08/28/16 03/20/17 Amitriptyline [Elavil] 06/12/18 Aspirin 06/12/18 Docusate Calcium 06/12/18 Insulin Aspart [Novolog Flexpen] 06/12/18 Losartan [Cozaar] 06/12/18 Omeprazole 06/12/18 Simvastatin 06/12/18 Benzonatate [Tessalon Perle] 100 - 200 mg PO TID PRN #30 capsule 09/01/18 Butalb/Acetaminophen/Caffeine 1 cap PO Q8H PRN #10 capsule 04/17/19 [Fioricet 50-300-40 mg Capsule] diphenhydrAMINE [Benadryl] 25 - 50 mg PO Q6H PRN #30 capsule 04/17/19 Oxycodone HCl/Acetaminophen 1 - 2 each PO Q6H PRN #20 tablet 05/06/19 [Percocet 5-325 mg Tablet] Promethazine [Phenergan] 25 mg PO Q6H PRN #10 tab 05/06/19 predniSONE [Deltasone] 20 mg PO [id number] #21 tab 05/06/19 Cyclobenzaprine [Flexeril] 10 mg PO TID PRN #20 tablet 05/07/19 HYDROmorphone [Dilaudid] 2 mg PO Q4-6H PRN #25 tablet 05/26/19 Naproxen 500 mg PO BID #20 tablet 05/26/19 hydrOXYzine PAMOATE [Vistaril] 25 mg PO Q6H PRN #20 capsule 05/26/19 Ondansetron Odt [Zofran] 4 mg TL Q6H PRN #10 tablet 05/30/19 - Allergies Allergies/Adverse Reactions: Allergies Allergy/AdvReac Type Severity Reaction Status Date / Time iodine Allergy Rash Verified 06/01/19 09:31 Sulfa (Sulfonamide Allergy Rash Verified 06/01/19 09:31 Antibiotics) - Social History Does the pt smoke?: No Smoking Status: Never smoker Does the pt drink ETOH?: Yes Does the pt have substance abuse?: No - Immunizations Immunizations are current?: Yes PD ED PE NORMAL - Vitals Vital signs reviewed: Yes - General General: Alert and oriented X 3, No acute distress, Well developed/nourished - HEENT HEENT: Moist mucous membranes - Neck Neck: Supple, no meningeal sign - Cardiac Cardiac: RRR, Strong equal pulses - Respiratory Respiratory: No respiratory distress, Clear bilaterally - Abdomen Abdomen: Soft, Non tender, Non distended - Back Back: No spinal TTP - Derm Derm: Warm and dry - Extremities Extremities: Other (mild B pedal edema) - Neuro Neuro: Alert and oriented X 3 - Psych Psych: Normal mood, Normal affect Results - Vitals Vitals: Vital Signs - 24 hr 06/01/19 06/01/19 09:31 11:51 Temperature 36.8 C Heart Rate 92 87 Respiratory 18 18 Rate Blood Pressure 128/78 125/83 H O2 Saturation 98 97 Oxygen O2 Source Room air - Rads (name of study) duplex US R LE Radiology: Prelim report reviewed, EMP read contemporaneously, See rad report (normal) PD MEDICAL DECISION MAKING - ED course Complexity details: reviewed results, re-evaluated patient, considered differential, d/w patient, d/w j2ee consultant ED course: Patient with her chronic back pain. Spoke with Dr. Snell, spine surgery, at 1010, he states that there are no interventions that he can offer this patient while she is . He recommends speaking with the account receivable associate, Dr. Jernigan. Spoke with Dr. Jernigan. She will try to get the patient in urgently for a repeat injection. We will trial the patient with a walker at home as well as a belt. Patient has pain medications at home. No DVT on ultrasound. She requests a small dose of ketamine. This was given to her. She was counseling center manager ed regarding potential defects and harm to the fetus. She is accepting of these risks. Patient will follow-up with her OB as well for further care. Patient counseled regarding signs and symptoms for which I believe and urgent re-evaluation would be necessary. Patient with good understanding of and agreement to plan and is comfortable going home at this time This document was made in part using voice recognition software. While efforts are made to proofread this document, sound alike and grammatical errors may occur. Departure - Departure Disposition: Home, Self Care Clinical Impression: Lumbar radiculopathy, acute Condition: Good Instructions: ED Sciatica Follow-Up: SIMBA SWANSON DO [Primary Care Provider] - Within 3 Days Comments: Dr. Jernigan states that she will get you into clinic for repeat injection. Return if you worsen. Follow-up with your doctor for further care. You should discuss alternative therapies with your doctor for your pain. You should be wearing her belt as well. The walker may help take pressure off of your spine. Discharge Date/Time: 06/01/19 12:37
--- NOTE | 2019-06-01 11:45 | Ultrasound Report ---
Reason: RLE swelling, pain Procedure Date: 06/01/2019 Accession Number: [id number] / [id number] Procedure: US - Duplex Ext Veins Right CPT Code: FULL RESULT: EXAM: RIGHT LOWER EXTREMITY VENOUS ULTRASOUND EXAM DATE: 06/01/2019 11:21 AM. CLINICAL HISTORY: RLE swelling, pain. COMPARISON: None. TECHNIQUE: Real-time sonographic vascular imaging was performed by the health and safety tech through the lower extremity utilizing both color-flow and Doppler spectral analysis. Multiple senior outside sales representative static images were saved for review. FINDINGS: Common Femoral Vein (CFV): Normal. CFV-GSV Junction: Normal. Profunda Femoral Vein (PFV): Normal. Femoral Vein (FV) Prox: Normal. Femoral Vein (FV) Mid: Normal. Femoral Vein (FV) Dist: Normal. Popliteal Vein: Normal. Posterior Tibial Veins: Normal. Peroneal Veins: Normal. Contralateral Side CFV: Normal. Other: Mild right calf soft tissue edema. IMPRESSION: No evidence for deep venous thrombosis. RADIA
[2019-06-01 11:52] VITALS: BP 125/83
[2019-06-01] MEDS ORDERED: ONDANSETRON ODT 4 MG TABLET TL STA (12:14)
[2019-06-01] MEDS ORDERED: KETAMINE 500 MG/10 ML VIAL IM STA (12:14)
[2019-06-01] MEDS ORDERED: diphenhydrAMINE INJ 50 MG/ML VIAL IM STA (12:15)
== END 2019-06-01 12:37 | disposition home or self-care (01) ==
LOC: ED 09:26
DX: O99.89 Other specified diseases and conditions complicating pregnancy, childbirth and the puerperium (principal); M54.16 Radiculopathy, lumbar region; O24.112 Pre-existing type 2 diabetes mellitus, in pregnancy, second trimester; E11.9 Type 2 diabetes mellitus without complications; O10.012 Pre-existing essential hypertension complicating pregnancy, second trimester; O09.522 Supervision of elderly multigravida, second trimester; Z3A.24 24 weeks gestation of pregnancy; Z79.4 Long term (current) use of insulin; Z79.82 Long term (current) use of aspirin
CPT/HCPCS: 93971; 96372; 99282; 99284; A9270; J1200; Q0162

== ENCOUNTER 2019-06-22 13:56 | Emergency (ER) | payer OTHER ==
[2019-06-22] MEDS ORDERED: diphenhydrAMINE INJ 50 MG/ML VIAL IVP STA ×2 (15:30→16:52)
[2019-06-22] MEDS ORDERED: SODIUM CHLORIDE 0.9% 1,000 ML IV ONE (15:30)
[2019-06-22 16:01] LABS: BASOPHILS % (AUTO) 0.2 %; EOSINOPHILS # (AUTO) 0.2 10^3/uL (0.0-0.7); EOSINOPHILS % (AUTO) 1.1 %; HGB - HEMOGLOBIN 11.8 g/dL (12.0-16.0); LYMPHOCYTES # (AUTO) 2.2 10^3/uL (1.5-3.5); LYMPHOCYTES % (AUTO) 16.9 %; MEAN CORPUSCULAR HEMOGLOBIN 26.5 pg (27.0-31.0); MEAN CORPUSCULAR HGB CONC 31.6 g/dL (32.0-36.0); MEAN CORPUSCULAR VOLUME 83.8 fL (81.0-99.0); MEAN PLATELET VOLUME 9.7 fL (7.9-10.8); MONOCYTES # (AUTO) 0.4 10^3/uL (0.0-1.0); MONOCYTES % (AUTO) 3.2 %; NEUTROPHILS # (AUTO) 10.2 10^3/uL (1.5-6.6); NEUTROPHILS % (AUTO) 77.8 %; PLT - PLATELET COUNT 310 10^3/uL (130-450); RED BLOOD COUNT 4.45 10^6/uL (4.20-5.40); RED CELL DISTRIBUTION WIDTH 13.5 % (12.0-15.0); WHITE BLOOD COUNT 13.2 x10^3/uL (4.8-10.8)
[2019-06-22] MEDS ORDERED: PROMETHAZINE INJ 25 MG in SODIUM CHLORIDE 0.9% 50 ML IV STA (16:10)
[2019-06-22 16:13] LABS: ALBUMIN 3.3 g/dL (3.2-5.5); ALBUMIN/GLOBULIN RATIO 0.9 (1.0-2.2); BILIRUBIN,TOTAL 0.4 mg/dL (0.2-1.0); CALCIUM 8.9 mg/dL (8.5-10.3); CREATININE 0.5 mg/dL (0.4-1.0); TOTAL PROTEIN 7.1 g/dL (6.7-8.2)
[2019-06-22 16:48] VITALS: BP 119/62
--- NOTE | 2019-07-06 19:27 | ED Physician Documentation ---
PD HPI NVD - Stated complaint Stated Complaint: BODY ACHES/CHILLS - Chief complaint Chief Complaint: Abd Pain - History obtained from History obtained from: Patient - History of Present Illness Timing - onset: Other (several months ago) Timing - duration: Other (chronic for months throughout this but reportedly worse for a few days) Timing - details: Gradual onset, Still present Associated symptoms: Abdominal pain, Other (constipation, nausea, vomiting, no fever, no chest pain or sob) Contributing factors: Other (, constipation, narcotic use) Improved by: Other (nothing) Worsened by: Moving, Palpation Similar symptoms before: Work up / diagnostics, Treatment (she has hx of chronic back pain and hyperemesis gravidarum during this . SHe has had imaging and multiple labs for this in the past several months.) Recently seen: Clinic, Emergency Dept, Admitted - Treatment prior to arrival Treatment prior to arrival: phenergan and zofran at home without relief - Additonal information Additional information: Pt is 27 weeks and has a hx of chronic back pain and was placed on dila udid but then developed withdrawal symptoms and reportedly ended up admitted for a short time in the hospital. She was then discharged and 2 days later developed abdominal pain and nausea again. She has had bowel movements and passed flatus. She reports constipation for weeks due to the dilaudid use. She reports today diffuse abdominal discomfort and nausea. Review of Systems Ten Systems: 10 systems reviewed and negative Constitutional: reports: Reviewed and negative Eyes: reports: Reviewed and negative Ears: reports: Reviewed and negative Throat: reports: Reviewed and negative Cardiac: reports: Reviewed and negative Respiratory: reports: Reviewed and negative GI: reports: Abdominal Pain, Nausea, Vomiting, Constipation : reports: Reviewed and negative Skin: reports: Reviewed and negative Musculoskeletal: reports: Back pain Neurologic: reports: Reviewed and negative Endocrine: reports: Reviewed and negative Immunocompromised: reports: Reviewed and negative PD PAST MEDICAL HISTORY - Past Medical History Past Medical History: Yes Cardiovascular: Hypertension, High cholesterol Respiratory: None Neuro: None Endocrine/Autoimmune: Type 2 diabetes GI: GERD, Hiatal hernia, Chronic constipation 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: 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, Ovarian cysts : None HEENT: None Psych: Anxiety Musculoskeletal: Fatigue, Chronic back pain Derm: Eczema - Past Surgical History Past Surgical History: Yes Ortho: Spine surgery /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: section, Dilation and currettage HEENT: Tonsil/Adenoidectomy - Present Medications Home Medications: Ambulatory Orders Medication Instructions Recorded Confirmed Ibuprofen 800 mg PO DAILY 08/28/16 03/20/17 metFORMIN [Glucophage] 1,000 mg PO BID 08/28/16 03/20/17 Amitriptyline [Elavil] 06/12/18 Aspirin 06/12/18 Docusate Calcium 06/12/18 Insulin Aspart [Novolog Flexpen] 06/12/18 Losartan [Cozaar] 06/12/18 Omeprazole 06/12/18 Simvastatin 06/12/18 Benzonatate [Tessalon Perle] 100 - 200 mg PO TID PRN #30 capsule 09/01/18 Butalb/Acetaminophen/Caffeine 1 cap PO Q8H PRN #10 capsule 04/17/19 [Fioricet 50-300-40 mg Capsule] diphenhydrAMINE [Benadryl] 25 - 50 mg PO Q6H PRN #30 capsule 04/17/19 Oxycodone HCl/Acetaminophen 1 - 2 each PO Q6H PRN #20 tablet 05/06/19 [Percocet 5-325 mg Tablet] Promethazine [Phenergan] 25 mg PO Q6H PRN #10 tab 05/06/19 predniSONE [Deltasone] 20 mg PO [id number] #21 tab 05/06/19 Cyclobenzaprine [Flexeril] 10 mg PO TID PRN #20 tablet 05/07/19 HYDROmorphone [Dilaudid] 2 mg PO Q4-6H PRN #25 tablet 05/26/19 Naproxen 500 mg PO BID #20 tablet 05/26/19 hydrOXYzine PAMOATE [Vistaril] 25 mg PO Q6H PRN #20 capsule 05/26/19 Ondansetron Odt [Zofran] 4 mg TL Q6H PRN #10 tablet 05/30/19 Promethazine Supp [Phenergan Supp] 0 mg OH Q6HR PRN #30 supp 06/22/19 Pyridoxine HCl (Vitamin B6) 25 mg PO TID #30 tablet 07/04/19 [Pyridoxine HCl] - Allergies Allergies/Adverse Reactions: Allergies Allergy/AdvReac Type Severity Reaction Status Date / Time iodine Allergy Rash Verified 07/03/19 23:29 Sulfa (Sulfonamide Allergy Rash Verified 07/03/19 23:29 Antibiotics) - Social History Does the pt smoke?: No Smoking Status: Never smoker Does the pt drink ETOH?: Yes Does the pt have substance abuse?: No - Immunizations Immunizations are current?: Yes PD ED PE NORMAL - Vitals Vital signs reviewed: Yes - General General: Alert and oriented X 3, No acute distress, Well developed/nourished - HEENT HEENT: Atraumatic, Moist mucous membranes, Pharynx benign, Dentition benign - Neck Neck: Supple, no meningeal sign - Cardiac Cardiac: RRR, No murmur, No gallop, No rub - Respiratory Respiratory: No respiratory distress, Clear bilaterally - Abdomen Abdomen: Soft, Non tender, Other (gravid) - Female Female : Deferred - Rectal Rectal: Deferred - Derm Derm: Normal color, Warm and dry, No rash - Extremities Extremities: No deformity, No tenderness to palpate, Normal ROM s pain, No edema - Neuro Neuro: Alert and oriented X 3 Eye Opening: Spontaneous Motor: Obeys Commands Verbal: Oriented GCS Score: 15 - Psych Psych: Normal mood, Normal affect Results - Vitals Vitals: Oxygen O2 Source Room air - Labs Labs: Laboratory Tests 06/22/19 06/22/19 06/22/19 15:55 15:55 15:55 WBC 13.2 H RBC 4.45 Hgb 11.8 L Hct 37.3 MCV 83.8 MCH 26.5 L MCHC 31.6 L RDW 13.5 Plt Count 310 MPV 9.7 Neut # (Auto) 10.2 H Lymph # (Auto) 2.2 Luna # (Auto) 0.4 Eos # (Auto) 0.2 Baso # (Auto) 0.0 Absolute Nucleated RBC 0.00 Nucleated RBC % 0.0 Sodium 133 L Potassium 4.1 Chloride 102 Carbon Dioxide 21 Anion Gap 10.0 BUN 6 Creatinine 0.5 Estimated GFR (MDRD) 138 Glucose 126 H Lactic Acid 0.7 Calcium 8.9 Total Bilirubin 0.4 AST 14 ALT 18 Alkaline Phosphatase 102 Total Protein 7.1 Albumin 3.3 Globulin 3.8 Albumin/Globulin Ratio 0.9 L Lipase 121 H PD MEDICAL DECISION MAKING - ED course Complexity details: reviewed old records, reviewed results, re-evaluated patient, considered differential, d/w patient, d/w family ED course: 38 y./o F with chronic back pain during her and hyperemesis gravidarum returns today for nausea, vomiting, abdominal pain and constipation. She had narcotic withdrawal and thus is back on dilaudid now and having constipation.l She has had nausea and vomiting as well. Pt is well appearing with normal labs except a mildly elevated wbc likely due to vomiting, and vitals are normal. kidney and electrolytes were normal and not suggestive of significant dehydration but pt was given some fluids in the ED as well as phenergan and benadryl which improved her nausea. She has never vomited in the ED and is tolerating pO. Her abdomen is soft without tenderness guarding or rebound to suggest SBO. I suspect that she is constipated due to narcotic use and advised continuing to taper off of dilaudid. I feel she is stable for discharge with outpt f/u and continued supportive care at home. Departure - Departure Disposition: 01 Home, Self Care Clinical Impression: Nausea and vomiting during Condition: Stable Instructions: Hyperemesis Follow-Up: SIMBA SWANSON DO [Primary Care Provider] - Prescriptions: Promethazine Supp [Phenergan Supp] 0 mg OH Q6HR PRN #30 supp PRN Reason: Nausea / Vomiting Comments: Your labs today showed a mildly elevated white blood cell count which may be due to vomiting. Your kidney function and electrolytes were normal and did not show any significant dehydration. You were given fluids and phenergan and benadryl with improvement in your symptoms. Follow up with your doctor this week. If you develop fever, persistent vomiting or worsening pain return to the ED. Discharge Date/Time: 06/22/19 17:03
== END 2019-06-22 17:03 | disposition home or self-care (01) ==
LOC: ED 13:56
DX: O21.2 Late vomiting of pregnancy (principal); Z3A.27 27 weeks gestation of pregnancy; O99.89 Other specified diseases and conditions complicating pregnancy, childbirth and the puerperium; M54.9 Dorsalgia, unspecified; G89.29 Other chronic pain; Z79.891 Long term (current) use of opiate analgesic; D72.829 Elevated white blood cell count, unspecified; O10.912 Unspecified pre-existing hypertension complicating pregnancy, second trimester; O24.112 Pre-existing type 2 diabetes mellitus, in pregnancy, second trimester; E11.9 Type 2 diabetes mellitus without complications; Z79.4 Long term (current) use of insulin
CPT/HCPCS: 36415; 80053; 83605; 83690; 85025; 96365; 96375; 99284; J1200; J7040

== ENCOUNTER 2019-07-03 22:21 | Outpatient (CLI) | payer OTHER ==
[2019-07-03 23:38] VITALS: BP 142/82
== END 2019-07-03 23:20 | disposition home or self-care (01) ==
LOC: WFO 22:21 → FBP 22:23 → WFO 23:20
PROVIDERS: ATTEND Obstetrics & Gynecology
DX: O21.2 Late vomiting of pregnancy (principal); R19.7 Diarrhea, unspecified; Z3A.29 29 weeks gestation of pregnancy; O24.913 Unspecified diabetes mellitus in pregnancy, third trimester; O16.3 Unspecified maternal hypertension, third trimester; Z79.4 Long term (current) use of insulin; Z98.890 Other specified postprocedural states
CPT/HCPCS: 59025; 99212

== ENCOUNTER 2019-07-03 23:21 | Emergency (ER) | payer OTHER ==
--- NOTE | 2019-07-03 23:40 | ED Physician Documentation ---
PD HPI NVD - Stated complaint Stated Complaint: CRAMP/VOM/DIAH - Chief complaint Chief Complaint: Abd Pain - History obtained from History obtained from: Patient - History of Present Illness Timing - onset: Today Timing - details: Abrupt onset Associated symptoms: Abdominal pain, Dizzy. No: Fever, Loss of appetite, Dysuria, Vaginal bleeding Contributing factors: No: Sick contact, Bad food Recently seen: Other (OB) - Additonal information Additional information: This is a 38-year-old woman who is 29 weeks presents after nonstress test in our OB department complaining of vomiting for the past 5 to 6 days complicated tonight by cramping that started "out of nowhere". The cramping is suprapubic and radiating to both sides of the lower abdomen. She also has some diarrhea yesterday. She became concerned with the cramping that she had not felt the baby move for about 6 hours so she called her high school computer science teacher in [place] and they told her to come in and have a nonstress test. She has a history of diabetes just started taking insulin about 14 months ago blood sugar this morning was 117 and it was 150 tonight. She has been having vomiting throughout this and has been treated with Zofran, Reglan and Phenergan suppositories as well as Phenergan pills they do not seem to be helping. She was seen here in the emergency department last week for vomiting and was given Phenergan IV which helped tremendously. She says she is lost 10 pounds in the past 12 days. She has not had a fever. She just had surgery for herniated disc during this June 07. That postoperative course was complicated by a narcotic withdrawal and was she was admitted to [facility] for 4 days they weaned her down to 1 mg of Dilaudid every 8 hours at this point. She is complaining of palpitations and feeling dizzy but she has not been out. Denies cough or dysuria. She is had prior but still has her gallbladder and her appendix. She is , Remaining pregnancies ended in miscarriage or . The latest miscarriage she had was at 3 months. Review of Systems Constitutional: denies: Fever Cardiac: reports: Palpitations Respiratory: denies: Cough GI: reports: Abdominal Pain, Nausea, Vomiting, Diarrhea : reports: Now EGA (She is at 29 weeks ). 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: 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, Ovarian cysts : None HEENT: None Psych: Anxiety Musculoskeletal: Fatigue, Chronic back pain Derm: Eczema - Past Surgical History Past Surgical History: Yes Ortho: Spine surgery /RN ANGIOGRAPHY: section, Dilation and currettage HEENT: Tonsil/Adenoidectomy - Present Medications Home Medications: Ambulatory Orders Medication Instructions Recorded Confirmed Ibuprofen 800 mg PO DAILY 08/28/16 03/20/17 metFORMIN [Glucophage] 1,000 mg PO BID 08/28/16 03/20/17 Amitriptyline [Elavil] 06/12/18 Aspirin 06/12/18 Docusate Calcium 06/12/18 Insulin Aspart [Novolog Flexpen] 06/12/18 Losartan [Cozaar] 06/12/18 Omeprazole 06/12/18 Simvastatin 06/12/18 Benzonatate [Tessalon Perle] 100 - 200 mg PO TID PRN #30 capsule 09/01/18 Butalb/Acetaminophen/Caffeine 1 cap PO Q8H PRN #10 capsule 04/17/19 [Fioricet 50-300-40 mg Capsule] diphenhydrAMINE [Benadryl] 25 - 50 mg PO Q6H PRN #30 capsule 04/17/19 Oxycodone HCl/Acetaminophen 1 - 2 each PO Q6H PRN #20 tablet 05/06/19 [Percocet 5-325 mg Tablet] Promethazine [Phenergan] 25 mg PO Q6H PRN #10 tab 05/06/19 predniSONE [Deltasone] 20 mg PO [id number] #21 tab 05/06/19 Cyclobenzaprine [Flexeril] 10 mg PO TID PRN #20 tablet 05/07/19 HYDROmorphone [Dilaudid] 2 mg PO Q4-6H PRN #25 tablet 05/26/19 Naproxen 500 mg PO BID #20 tablet 05/26/19 hydrOXYzine PAMOATE [Vistaril] 25 mg PO Q6H PRN #20 capsule 05/26/19 Ondansetron Odt [Zofran] 4 mg TL Q6H PRN #10 tablet 05/30/19 Promethazine Supp [Phenergan Supp] 0 mg DC Q6HR PRN #30 supp 06/22/19 Pyridoxine HCl (Vitamin B6) 25 mg PO TID #30 tablet 07/04/19 [Pyridoxine HCl] - Allergies Allergies/Adverse Reactions: Allergies Allergy/AdvReac Type Severity Reaction Status Date / Time iodine Allergy Rash Verified 07/03/19 23:29 Sulfa (Sulfonamide Allergy Rash Verified 07/03/19 23:29 Antibiotics) - Social History Does the pt smoke?: No Smoking Status: Never smoker Does the pt drink ETOH?: Yes Does the pt have substance abuse?: No - Immunizations Immunizations are current?: Yes PD ED PE NORMAL - Vitals Vital signs reviewed: Yes - General General: Alert and oriented X 3, No acute distress, Well developed/nourished - HEENT HEENT: Atraumatic, PERRL, Moist mucous membranes - Cardiac Cardiac: RRR, No murmur, Strong equal pulses - Respiratory Respiratory: No respiratory distress, Clear bilaterally - Abdomen Abdomen: Normal bowel sounds, Soft, Non tender, Non distended, Other (Gravid uterus.) - Back Back: Other (There is an incision in the right paraspinal lumbar region with skin adhesive. There is no surrounding erythema or edema.) - Derm Derm: Normal color, Warm and dry, No rash - Extremities Extremities: No edema - Neuro Neuro: Alert and oriented X 3, limo driver 2-12 intact, No motor deficit, No sensory deficit, Normal speech Results - Vitals Vitals: Vital Signs - 24 hr 07/03/19 07/04/19 07/04/19 23:25 01:18 02:57 Temperature 36.7 C Heart Rate 94 90 100 Respiratory 18 14 17 Rate Blood Pressure 136/75 H 135/79 H 128/81 H O2 Saturation 99 99 97 Oxygen O2 Source Room air - Labs Labs: Laboratory Tests 07/03/19 07/04/19 07/04/19 23:16 00:27 00:27 WBC 10.2 RBC 4.25 Hgb 11.4 L Hct 35.4 L MCV 83.3 MCH 26.8 L MCHC 32.2 RDW 13.7 Plt Count 263 MPV 9.5 Neut # (Auto) 6.8 H Lymph # (Auto) 2.6 Ralls # (Auto) 0.5 Eos # (Auto) 0.1 Baso # (Auto) 0.0 Absolute Nucleated RBC 0.00 Nucleated RBC % 0.0 VBG pH VBG pCO2 VBG pO2 VBG HCO3 VBG Total CO2 VBG O2 Saturation VBG Base Excess Sodium 133 L Potassium 3.4 L Chloride 103 Carbon Dioxide 21 Anion Gap 9.0 BUN 7 Creatinine 0.5 Estimated GFR (MDRD) 138 Glucose 163 H Calcium 9.0 Total Bilirubin 0.6 AST 11 ALT 14 Alkaline Phosphatase 95 Total Protein 6.3 L Albumin 2.8 L Globulin 3.5 Albumin/Globulin Ratio 0.8 L Lipase 42 Urine Color YELLOW Urine Clarity CLEAR Urine pH 6.0 Ur Specific [place] >=1.030 H Urine Protein NEGATIVE Urine Glucose (UA) 250 H Urine Ketones >=80 H Urine Occult Blood NEGATIVE Urine Nitrite NEGATIVE Urine Bilirubin NEGATIVE Urine Urobilinogen 0.2 (NORMAL) Ur Leukocyte Esterase NEGATIVE Ur Microscopic Review NOT INDICATED Urine Culture Comments NOT INDICATED Serum Ketones 07/04/19 07/04/19 02:12 02:12 WBC RBC Hgb Hct MCV MCH MCHC RDW Plt Count MPV Neut # (Auto) Lymph # (Auto) Ralls # (Auto) Eos # (Auto) Baso # (Auto) Absolute Nucleated RBC Nucleated RBC % VBG pH 7.419 H VBG pCO2 32.4 L VBG pO2 57.7 H VBG HCO3 20.5 L VBG Total CO2 21.5 L VBG O2 Saturation 90.4 H VBG Base Excess -3.2 L Sodium Potassium Chloride Carbon Dioxide Anion Gap BUN Creatinine Estimated GFR (MDRD) Glucose Calcium Total Bilirubin AST ALT Alkaline Phosphatase Total Protein Albumin Globulin Albumin/Globulin Ratio Lipase Urine Color Urine Clarity Urine pH Ur Specific [place] Urine Protein Urine Glucose (UA) Urine Ketones Urine Occult Blood Urine Nitrite Urine Bilirubin Urine Urobilinogen Ur Leukocyte Esterase Ur Microscopic Review Urine Culture Comments Serum Ketones NEGATIVE PD MEDICAL DECISION MAKING - ED course Complexity details: reviewed results, d/w patient, d/w family, d/w specialty sales consultant ED course: Patient CBC is normal. Her blood sugar was 163 but normal liver function and electrolytes except for mildly low potassium. Urine had positive ketones glucose and a specific gravity greater than 1.030. Her serum ketones and pH show no evidence of DKA. She was given 2 L of saline as well as Phenergan IV, folate and thiamine IV and oral Tylenol for headache.I did discuss case with Dr. Longoria who is her OB and he will follow the patient in clinic. wanted okay for the patient to receive pyridoxine to see if that would help with her nausea of . 0301: Despite multiple discussions regarding limiting use of pharmaceuticals during the patient continued to complain that she was restless and could not sleep and needed IV Benadryl to control her nausea and restlessness. She understands that these pharmaceuticals could be deleterious to the development and well-being of her child but continues to insist that she will need the Benadryl. IV Benadryl was ordered. 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 Push fluids as much as possible. Continue to monitor your blood sugars. Follow-up with Dr. Longoria for the routine OB care. Return to the emergency department if he continued vomiting and cannot keep anything down, your blood sugars are uncontrolled or you have increasing abdominal pain.
[2019-07-03 23:56] LABS: BILIRUBIN,URINE NEGATIVE (NEGATIVE); GLUCOSE, URINE (UA) 250 mg/dL (NEGATIVE); KETONES,URINE (UA) >=80 mg/dL (NEGATIVE); LEUKOCYTE ESTERASE, URINE NEGATIVE (NEGATIVE); NITRITE,URINE NEGATIVE (NEGATIVE); OCCULT BLOOD,URINE NEGATIVE (NEGATIVE); PROTEIN,URINE NEGATIVE (NEGATIVE); UROBILINOGEN,URINE 0.2 (NORMAL) E.U./dL (NORMAL)
[2019-07-03 23:57] LABS: CLARITY,URINE CLEAR (CLEAR)
[2019-07-04] MEDS ORDERED: LACTATED RINGERS 1,000 ML IV STA (00:02)
[2019-07-04] MEDS ORDERED: PROMETHAZINE INJ 12.5 MG in SODIUM CHLORIDE 0.9% 50 ML IV STA (00:03)
[2019-07-04 00:33] LABS: BASOPHILS % (AUTO) 0.2 %; EOSINOPHILS # (AUTO) 0.1 10^3/uL (0.0-0.7); EOSINOPHILS % (AUTO) 1.2 %; HGB - HEMOGLOBIN 11.4 g/dL (12.0-16.0); LYMPHOCYTES # (AUTO) 2.6 10^3/uL (1.5-3.5); LYMPHOCYTES % (AUTO) 25.8 %; MEAN CORPUSCULAR HEMOGLOBIN 26.8 pg (27.0-31.0); MEAN CORPUSCULAR HGB CONC 32.2 g/dL (32.0-36.0); MEAN CORPUSCULAR VOLUME 83.3 fL (81.0-99.0); MEAN PLATELET VOLUME 9.5 fL (7.9-10.8); MONOCYTES # (AUTO) 0.5 10^3/uL (0.0-1.0); NEUTROPHILS # (AUTO) 6.8 10^3/uL (1.5-6.6); NEUTROPHILS % (AUTO) 67.2 %; PLT - PLATELET COUNT 263 10^3/uL (130-450); RED BLOOD COUNT 4.25 10^6/uL (4.20-5.40); RED CELL DISTRIBUTION WIDTH 13.7 % (12.0-15.0); WHITE BLOOD COUNT 10.2 x10^3/uL (4.8-10.8)
[2019-07-04 00:45] LABS: ALBUMIN 2.8 g/dL (3.2-5.5); ALBUMIN/GLOBULIN RATIO 0.8 (1.0-2.2); BILIRUBIN,TOTAL 0.6 mg/dL (0.2-1.0); CREATININE 0.5 mg/dL (0.4-1.0); TOTAL PROTEIN 6.3 g/dL (6.7-8.2)
[2019-07-04] MEDS ORDERED: FOLIC ACID INJ 1 MG in SODIUM CHLORIDE 0.9% 1,000 ML IV STA (00:51)
[2019-07-04] MEDS ORDERED: THIAMINE INJ 100 MG in SODIUM CHLORIDE 0.9% 50 ML IV STA (00:51)
[2019-07-04 02:19] LABS: VBG BASE EXCESS -3.2 mmol/L (-2 - +2); VBG PCO2 32.4 mmHg (41-51); VBG PH 7.419 (7.31-7.41); VBG PO2 57.7 mmHg (25-47); VBG TOTAL CO2 21.5 mmol/L (24-29)
[2019-07-04] MEDS ORDERED: ACETAMINOPHEN 325 MG TABLET PO STA (02:26)
[2019-07-04] MEDS ORDERED: diphenhydrAMINE INJ 50 MG/ML VIAL IVP STA (03:00)
[2019-07-04 04:24] VITALS: BP 105/63
--- NOTE | 2019-07-04 12:46 | PROCEDURE REPORT ---
- HPI Diagnosis/Indication for NST: Other (Nausea vomiting and diarrhea) Vital Signs Temperature 36.7 C 07/03/19 23:25 Heart Rate 94 07/03/19 23:25 Respiratory Rate 18 07/03/19 23:25 Blood Pressure 136/75 H 07/03/19 23:25 O2 Saturation 99 07/03/19 23:25 Temperature 36.7 C 07/03/19 23:25 Heart Rate 100 07/04/19 04:24 Respiratory Rate 14 07/04/19 04:24 Blood Pressure 105/63 07/04/19 04:24 O2 Saturation 100 07/04/19 04:24 The patient came in tonight complaining about nausea and vomiting and diarrhea for 1 week. She is followed at [facility] in [place]. She has an LAI of 09/17/2019 making her approximately 29 weeks and 3 days today. She is a 7 para 1. She suffers from insulin-dependent diabetes mellitus, chronic hypertension, recent back surgery 3 weeks ago.She denies any vaginal bleeding or fluid. - NST Procedure NST Procedure Start Time 15:35 Stop Time 15:55 - Results and Plan Findings/Impression: No contractions at all are noted. There is a reactive NST. This was read on 07/04/2019. Plan: It does appear that the patient suffers at this time from gastroenteritis. She will be sent to the emergency room for further evaluation and treatment if necessary.She will follow-up with her regular OB provider in [place] at [facility].
== END 2019-07-04 04:38 | disposition home or self-care (01) ==
LOC: ED 23:21
DX: O21.2 Late vomiting of pregnancy (principal); O99.89 Other specified diseases and conditions complicating pregnancy, childbirth and the puerperium; E86.9 Volume depletion, unspecified; E11.69 Type 2 diabetes mellitus with other specified complication; O16.3 Unspecified maternal hypertension, third trimester; R51 Headache; Z79.4 Long term (current) use of insulin; Z3A.29 29 weeks gestation of pregnancy; R19.7 Diarrhea, unspecified; O24.913 Unspecified diabetes mellitus in pregnancy, third trimester; Z98.890 Other specified postprocedural states
CPT/HCPCS: 36415; 80053; 81003; 82009; 82803; 83690; 85025; 96365; 96367; 96375; 99284; 99285; A9270; J1200; J3411; J7040; J7120; 81001; 87086; 99212

== ENCOUNTER 2019-07-29 23:29 | Outpatient (CLI) | payer OTHER ==
[2019-07-29 23:53] VITALS: BP 118/79
--- NOTE | 2019-07-30 05:57 | PREOP HISTORY & PHYSICAL ---
DATE OF SERVICE: 07/30/2019 Physician: Galindo Weeks MD IDENTIFICATION: A 38-year-old G7, P1, AB5 female whose EDC is 09/17/2019. She had her last menstrua l period on November 23. She is currently 30 weeks, 0.0 days. She is being followed by the [facility]ram at [facility]. CHIEF COMPLAINT: Lack of motion and cramping. HISTORY OF PRESENT ILLNESS: Patient states she last felt the baby move at 1:30 in the morning on . She has noted some decreased motion in the last 12 days. She is currently being foll owed by the [facility] in [facility]. She was told to come in and get ch ecked at this time. She has no prior episodes in the past. She is known to have insulin-dependent d iabetes prior to her . She has also complained of some cramping which started at roughly 10 :30 this same morning, is random, is on the left side. It does progress to the back. She denies any leaking fluid. She has not had any previous episodes. Her is complicated with diabetes, which she has had for the last 8 years. She had become insulin-dependent in May 2018. Prior to this, she was treated with metformin. She also has a history of having polycystic ovary disease. Stiven yu relates her current insulin program at this time is 50 units of Lantus a.m. and p.m. with Humul in 18 minutes before breakfast, lunch, and 22 units before dinner. She states she has had a hemoglob in A1c of roughly 7. She states with her first child, she did not have any gestational diabetes. Barry yañez is currently at weight 208 pounds. Her is also complicated with hypercholesterolemia, as well as hypertension. She has had 5 losses in 2001, 2002, 2005, 2006 and 2007. She has a history of having had a previous section, at which time she lost one child, but currently h as a live delivery. Her fastings have been running roughly at 88-147. Her 2-hour postprandials have been running at 140 to 190s. PAST MEDICAL HISTORY: Polycystic ovary disease, hypertension, insulin-dependent diabetes, as well as hiatal hernia. PAST SURGICAL HISTORY: Tonsils and adenoidectomy, section. She has also had removal of a l eft pelvic endometrioma. She has had multiple D and C's. She has had several laparoscopies She has had endoscopies x3. She has had micro diskectomy of the L1, L5, as well as a microdiscectomy during this . CURRENT MEDICATIONS 1. Insulin 50 units of Lantus a.m., p.m. 2. Humulin 18 units prior to breakfast and lunch, and 22 units prior to dinner. 3. She also takes Tylenol. 4. vitamins. 5. Folic acid. 6. Promethazine. 7. Milk of magnesia. 8. Colace. 9. Hydroxyzine. 10. Sertraline. 11. Benadryl. 12. Metoprolol. 13. Neurontin. 14. Vitamin D. 15. Prilosec. HABITS: She denies the use of alcohol, tobacco, street or addictive drugs. ALLERGIES 1. IODINE. 2. LOPAMIDOL. 3. SULFA. 4. SUMATRIPTAN. SOCIAL HISTORY: The patient is and lives with her spouse who is active duty [employer]. 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 PHYSICAL EXAMINATION GENERAL: Patient is a well-developed, well-nourished, white female. She is very obese. VITAL SIGNS: Pulse is 95, temperature is 36.7, blood pressure 118/79, respirations are 16, saturatio n 100% on room air. HEENT: Pupils are equal, round. Extraocular muscles are intact. HEART: Regular rate and rhythm without murmurs. LUNGS: Lung shields are clear without rales or wheezes. BACK: No spinal or CVA tenderness noted. ABDOMEN: She has a scar from previous section. FURNITURE PACKER: Her cervix was noted to be closed prior to this. An FFN was obtained. Her monitor st rip showed a live infant at this time, but we were unable to roller picker any contractions secondary to ab dominal wall thickness. IMPRESSION AND PLAN: This is a 38-year-old G7, P1 female who is currently 30 weeks EGA. She has a h istory of insulin-dependent diabetes. She has polycystic ovarian syndrome. Her monitoring str ip shows evidence of a live and activity was noted, as well as palpated. Her cervical e xamination does not support labor at this time. We have obtained an FFN and those results are pendin g. We are allowing her to go home at this time. She is to continue to monitor motion. She is to contact her OB care in [place]. We will notify her if the FFN if positive; however, with a lo ng, closed cervix, I do not believe this is an issue at this time. TD: 07/30/2019 01:23
== END 2019-07-30 01:10 | disposition home or self-care (01) ==
LOC: FBP 23:29 → WFO 23:29
PROVIDERS: ATTEND Obstetrics & Gynecology
DX: O36.8130 Decreased fetal movements, third trimester, not applicable or unspecified (principal); R10.9 Unspecified abdominal pain; O24.313 Unspecified pre-existing diabetes mellitus in pregnancy, third trimester; E11.9 Type 2 diabetes mellitus without complications; O99.213 Obesity complicating pregnancy, third trimester; O99.283 Endocrine, nutritional and metabolic diseases complicating pregnancy, third trimester; E28.2 Polycystic ovarian syndrome; E78.00 Pure hypercholesterolemia, unspecified; O16.3 Unspecified maternal hypertension, third trimester; O26.23 Pregnancy care for patient with recurrent pregnancy loss, third trimester; O34.219 Maternal care for unspecified type scar from previous cesarean delivery; O09.523 Supervision of elderly multigravida, third trimester; Z3A.30 30 weeks gestation of pregnancy; Z79.4 Long term (current) use of insulin; Z79.899 Other long term (current) drug therapy
CPT/HCPCS: 82731; 99213

== ENCOUNTER 2019-08-26 18:49 | Outpatient (CLI) | payer OTHER ==
[2019-08-26 19:02] VITALS: BP 143/84
--- NOTE | 2019-08-28 19:04 | PROCEDURE REPORT ---
- HPI Diagnosis/Indication for NST: Decreased movement Current EDU 09/17/19 Gestation 36 Weeks and 6 Days 7 Para 1 Vital Signs Temperature 97.7 F 08/26/19 19:00 Heart Rate 87 08/26/19 19:00 Respiratory Rate 20 08/26/19 19:00 Blood Pressure 143/84 H 08/26/19 19:00 O2 Saturation 98 08/26/19 19:00 Temperature 97.7 F 08/26/19 19:00 Heart Rate 87 08/26/19 19:00 Respiratory Rate 08/26/19 19:00 Blood Pressure 143/84 H 08/26/19 19:00 O2 Saturation 98 08/26/19 19:00 - NST Procedure NST Procedure Start Date 08/26/19 Start Time 18:55 Stop Time 19:17 Vibroacoustic Stimulation Used No Patient States Movement Yes - Results and Plan Findings/Impression: NST for decreased movement. Has scheduled tomorrow am at outside facility. Category 1 NST. .
== END 2019-08-26 19:31 | disposition home or self-care (01) ==
LOC: WFO 18:49 → FBP 18:51 → WFO 19:31
PROVIDERS: ATTEND Obstetrics & Gynecology
DX: O36.8130 Decreased fetal movements, third trimester, not applicable or unspecified (principal); Z3A.36 36 weeks gestation of pregnancy
CPT/HCPCS: 59025; 99212

== ENCOUNTER 2019-12-13 16:51 | Outpatient (CLI) | payer OTHER ==
--- NOTE | 2019-12-13 16:06 | SLEEP CARE CONSULTATION ---
Information from patient questionnaire entered by Denisha Quinn. I have reviewed and concur with the information entered by Denisha Quinn. This document represents the service I personally performed and the decisions made by me, Rachel Juarez, RN, MSN, DEHAIRING MACHINE TENDER. History of Present Illness Service Date and Time: 12/13/2019 1651 Reason for follow up: other (9 month ) Type of Sleep Study: Polysomnography HPI additional information: last seen in February 2019 and just found out she was . She was being seen for insomnia but it seems once she slept well for the first 4 months. Then she started having other medical issues such a back pain, acid reflux and diabetes became out of control that contributed to restart of insomnia. Her son was born 3 weeks early in August 27 at 37 weeks. He had some problems initially due to hypoglycemia and rehospitalized and now stabilized. Initially she was not sleeping well due to care of new born. Now he is sleeping better. He is falls asleep from 11pm to MN. However, her sleep is now disrupted from back pain. She has a back surgeon and last seen in October. He had ordered physical therapy but then restrictions from [facility], she was unable to follow up. She feels the back pain has disrupted her sleep schedule. In addition her was waking every 2 hours but now he is sleeping 6-7 hours and she is waking up but hard to sleep through the night now and difficult to fall asleep. Her current wake time is 5-6 am with her infant to feed. Her current bedtime is 12am and falls asleep 30-60 minutes. She stays in bed and tosses and turns and looks at clock when awakens. She is waking every 2-3 hours. She is not always able to return to sleep right away and can take up to an hour to fall asleep. She is not napping when baby naps during the day. She states she is not tired when he naps but tired later. Bedtime ritual is watching movies with spouse and 19 year old son. She starts to doze at 11pm and goes to bed and then unable to fall asleep when gets to bed as noted above. Subjective Initial [place] Sleepiness Scale score: 9 Physical Exam Height: 5 ft 4 in Weight: 196 lb (home weight) Weight change since last visit: 25 pounds stated by patient Body Mass Index: 33.6 BMI Classification: Obese Impression and Plan Insomnia is generally caused by an irregular sleep schedule, spending too much time in bed, napping, caffiene, electronics, lack of a relaxing bedtime ritual and clock watching. Other factors can include anxiety/depression, pain, medications, and obstructive sleep apnea. Currently Hipolito's insomnia seem related to an irregular sleep schedule, clock watching and back pain as well as care of her son. First I counseled the patient on the importance of a regular sleep schedule, starting with the wake time. I explained the homestatic sleep drive and how maintaining a regular wake time will allow the patient to be tired enough to sleep 15-16 hours later. By waking at the same time, the patient will also feel more alert. Electronics should be avoided 1-2 hours before bedtime as the bright light can reduce the endogenous melatonin and the activity of the computer, tablet, cell phone etc can be alerting. TV is okay but content needs to be relaxing and the brightness dimmed. The alarm clock should be set and the face covered to prevent clock watching if awakened during the night. Knowing the time can cause anxiety and increase alertness and thinking about sleep time and preparation for the next day. Instead if awakened after sleep, the patient is to position for comfort or use bathroom and return to sleep. If unable to go to sleep in an estimated 20 minutes of more, it is advised to leave the bedroom and engage in a quiet activity until sleepy enough to return to bed. If unable to sleep due to things on the mind, it is recommended to write out the concerns or list to do as a release then return to a quiet activity until sleepy enough to return to bed. This is to be repeated as often as necessary to associate the bed with sleep and not frustration to get to sleep. [facility] How to Sleep Better pamphlet will be sent to patient. A sleep diary will be completed if needed at follow up. In addition, she is to follow up with her back surgeon for further evaluaiton of back pain. I explained that some PT is done virtual and perhaps this can assist her as he had planned before the Covid 19 precautions became in effect. Patient agreed with plan. At the end of visit the patient started talking about dreams, this will have to be discussed further at follow up. I explained briefly how our dreams are how we work out life experiences. Perhaps if bothersome, writing out can be helpful as a release as well. Plan 1. regulate wake time 2. cover clock 3. Implement methods to return to sleep. 4. reduce light intensity on TV for movies 5. How to sleep better pamphlet to be sent 6. Follow up in 1-2 months / sleep diary if needed. Visit Type: Telehealth Video (to reduce risk of Covid 19 risk.) Video Type: [email or web address] Patient Location: Home Location of Provider: Home Patient agrees and consents to this telehealth visit type: Yes Patient agrees to have their insurance billed: Yes Time Spent with Patient (minutes): 28 Provider Statement: I spent 100% of the Telehealth Video Call with the patient with greater than 50% spent counseling the patient and coordination of care.
== END 2019-12-13 16:52 | disposition home or self-care (01) ==
LOC: SC 16:51
PROVIDERS: ATTEND Nurse Practitioner Family
DX: G47.00 Insomnia, unspecified (principal); M54.9 Dorsalgia, unspecified